=== PATIENT | male | born 1950 | race Caucasian/White ===

== ENCOUNTER 2018-03-23 16:40 | Observation (INO) | payer OTHER ==
--- NOTE | 2018-03-23 17:39 | EDPHY ---
H & P Stated Complaint: weakness post radiation for advanced prostate cancer/admit Time Seen by Provider: 03/23/18 17:11 HPI/ROS: CHIEF COMPLAINT: Severe anemia, generalized weakness HISTORY OF PRESENT ILLNESS: 67-year-old male with metastatic prostate cancer presents with severe anemia and generalized weakness. Over the past 3 days, onset of gradually increasing weakness and is now having difficulty ambulating. He just completed radiation therapy today at [facility] today. Hgb 7.9 today ( pt has lab test results from [facility] Dr. Lemos was consulted and the pt was sent to the emergency department for admission and blood transfusion. h/o multiple PRBC transfusions in the past; needs pretreatment with Tylenol, Benadryl and Solu-Medrol to avoid transfusion rxn. He also complains ongoing numbness of the lower face and dentition, which is quite aggravating and problematic. No etiology identified. REVIEW OF SYSTEMS: complete 10 point ROS negative except at noted in the HPI - Personal History Current Tetanus Diphtheria and Acellular Pertussis (TDAP): Yes - Medical/Surgical History Hx Asthma: No Hx Chronic Respiratory Disease: No Hx Diabetes: No Hx Cardiac Disease: No Hx Renal Disease: No Hx Cirrhosis: No Hx Alcoholism: No Hx HIV/AIDS: No Hx Splenectomy or Spleen Trauma: No Other PMH: prostate cancer - Social History Smoking Status: Never smoked Constitutional: Initial Vital Signs Temperature (C) 36.9 C 03/23/18 16:45 Heart Rate 92 03/23/18 16:45 Respiratory Rate 18 03/23/18 16:45 Blood Pressure 95/58 L 03/23/18 16:45 O2 Sat (%) 95 03/23/18 16:45 O2 Delivery Mode Room Air Allergies/Adverse Reactions: No Known Allergies Allergy (Unverified 03/23/18 16:43) Home Medications: Medication Instructions Recorded Acetaminophen [Tylenol ES 500 mg 1,000 mg PO PRN PRN 03/23/18 (*)] Calcium Carbonate [Oyster Shell 500 mg PO DAILY 03/23/18 Calcium 500 mg (*)] Dexamethasone [Decadron 4 MG (*)] 2 mg PO DAILY 03/23/18 Diazepam [Valium 10 MG (*)] 10 mg PO DAILY PRN 03/23/18 Herbals/Supplements -Info Only 1 ea PO DAILY 03/23/18 LORazepam [Lorazepam] 0.5 mg PO DAILY PRN 03/23/18 Leuprolide Acetate [Lupron Depot 22.5 mg IM .[id number] 03/23/18 (Lupaneta)] Naproxen Sodium [Aleve 220 MG (*)] 220 mg PO BID 03/23/18 Zolpidem Tartrate [Ambien 5MG (*)] 10 mg PO HS 03/23/18 diphenhydrAMINE [Benadryl 25 MG 25 mg PO PRN PRN 03/23/18 (*)] oxyCODONE IR [Oxycodone Ir (*)] 5 - 10 mg PO Q6 PRN 03/23/18 predniSONE 5 mg PO DAILY 03/23/18 Gabapentin [Neurontin 300 MG (*)] 600 mg PO HS #60 cap 03/25/18 Medical Decision Making ED Course/Re-evaluation: This patient presents with severe anemia, related to treatment of metastatic prostate cancer. No evidence of active hemorrhage or acute illness. 1 U packed red blood cells ordered. The hospitalist service was consulted for admission. Differential Diagnosis: Includes though is not limited to acute hemorrhage, aplastic anemia, hemolysis, hypertension. - Data Points Laboratory Results: Laboratory Results 03/23/18 17:28 03/23/18 17:28 03/23/18 17:28 Patient ABO/Rh B POSITIVE Antibody Screen NEGATIVE Crossmatch IS Only See Detail Bld Prod Verbal Order YES Medications Given: Discontinued Medications Acetaminophen (Tylenol) 1,000 mg PO ONCE ONE Stop: 03/23/18 20:47 Last Admin: 03/24/18 00:42 Dose: Not Given Acetaminophen (Tylenol) 1,000 mg PO ONCE ONE Stop: 03/24/18 00:46 Last Admin: 03/24/18 00:37 Dose: 1,000 mg Acetaminophen (Tylenol) 650 mg PO ONCE ONE Stop: 03/24/18 20:31 Last Admin: 03/24/18 21:36 Dose: 650 mg Calcium Carbonate (Oyster Shell Calcium) 500 mg PO DAILY COLIN Stop: 09/20/18 08:59 Last Admin: 03/25/18 09:36 Dose: 500 mg Dexamethasone (Decadron) 2 mg PO DAILY COLIN Stop: 03/28/18 09:01 Last Admin: 03/25/18 09:37 Dose: 2 mg Diphenhydramine HCl (Benadryl Injection) 50 mg IVP ONCE ONE Stop: 03/23/18 20:47 Last Admin: 03/24/18 00:42 Dose: Not Given Diphenhydramine HCl (Benadryl Injection) 50 mg IVP ONCE ONE Stop: 03/24/18 00:46 Last Admin: 03/24/18 00:38 Dose: 50 mg Diphenhydramine HCl (Benadryl Injection) 25 mg IVP ONCE ONE Stop: 03/24/18 20:31 Last Admin: 03/24/18 21:36 Dose: 25 mg Enoxaparin Sodium (Lovenox) 40 mg SC DAILY COLIN Stop: 09/20/18 08:59 Last Admin: 03/25/18 09:37 Dose: Not Given Gabapentin (Neurontin) 600 mg PO HS COLIN Stop: 09/19/18 20:59 Last Admin: 03/23/18 22:26 Dose: 600 mg Gabapentin (Neurontin) 600 mg PO BID COLIN Stop: 09/20/18 11:01 Last Admin: 03/25/18 09:36 Dose: 600 mg Dextrose/Sodium Chloride (D5w 1/2 Ns) 1,000 mls @ 75 mls/hr IV CONT COLIN Stop: 09/20/18 16:14 Last Admin: 03/24/18 16:45 Dose: 1,000 mls Lorazepam (Ativan) 0.5 mg PO DAILY PRN PRN Reason: pain/anxiety Stop: 09/19/18 20:46 Last Admin: 03/24/18 23:56 Dose: 0.5 mg Melatonin (Melatonin) 3 - 6 mg PO HS PRN PRN Reason: Sleep/Insomnia Stop: 09/20/18 23:34 Last Admin: 03/24/18 23:56 Dose: 6 mg Naproxen (Aleve) 220 mg PO BID COLIN Stop: 09/19/18 20:59 Last Admin: 03/25/18 09:36 Dose: 220 mg Prednisone (Prednisone) 5 mg PO DAILY COLIN Stop: 09/20/18 08:59 Last Admin: 03/24/18 11:58 Dose: Not Given Departure - Departure Disposition: [facility] In[facility] Acute Clinical Impression: Severe anemia, Prostate cancer Condition: Fair
[2018-03-23 17:40] LABS: PLATELET COUNT 99 10^3/uL (150-400)
[2018-03-23] MEDS ORDERED: ONDANSETRON 4 MG/2 ML VIAL IVP PRN (17:51)
[2018-03-23] MEDS ORDERED: ONDANSETRON DISINTEGRATING 4 MG TAB PO PRN (17:51)
[2018-03-23] MEDS ORDERED: ACETAMINOPHEN 325 MG TAB PO PRN (17:51)
[2018-03-23] MEDS ORDERED: ACETAMINOPHEN 500 MG TAB PO ONE (20:46)
[2018-03-23] MEDS ORDERED: LORazepam 0.5 MG TAB PO PRN (20:47)
[2018-03-23] MEDS ORDERED: oxyCODONE IR 5 MG TAB PO PRN (20:47)
[2018-03-23] MEDS ORDERED: DIAZEPAM 5 MG TAB PO PRN (20:47)
[2018-03-23] MEDS ORDERED: GABAPENTIN 300 MG CAP PO SCH (21:00)
[2018-03-23] MEDS: NAPROXEN SODIUM 220 MG TAB PO SCH (22:25)
--- NOTE | 2018-03-23 23:14 | PDGENHP ---
History and Physical - Chief Complaint Acute weakness - History of Present Illness Primary care provider: None locally Primary oncologist: Dr. Romulo Lemos Primary oncology team at [facility]: Drs. Navarro/Wesley HPI: 67-year-old male presenting with acute weakness characterized as generalized fatigue rendering difficulty ambulating with associated bilateral facial paresthesia located along the mandibular aspect bilaterally as well as the teeth, characterized as numbness. Onset of his weakness was approximately 3 days ago and duration has been consistently worsening thereafter. The patient was seen at [facility], and it was recommended that he establish care here in [place] with Dr. Romulo Lemos. The patient denies any melena or hematochezia, he reports that he has had to receive blood transfusions in the past for generalized weakness as well. He reports that the weakness is usually alleviated with the transfusions. He does have a history of transfusion reaction, and it is consequently been recommended to him that he receive washed and leukocyte reduced blood products with premedication including Tylenol and Benadryl. Patient's reports that on other occasions he has received additional medications including Solu-Medrol and H2 merari, but the patient did experience some untoward feelings of anxiety during those transfusions and he would like to avoid the steroids this time if possible. Additionally, the patient reports that his facial symptoms have become increasingly uncomfortable, resulting in him being unable to sleep despite utilization of his home dosages of opiates. History Information - Allergies/Home Medication List Allergies/Adverse Reactions: No Known Allergies Allergy (Unverified 03/23/18 16:43) Home Medications: Acetaminophen [Tylenol ES 500 mg (*)] 1,000 mg PO PRN PRN 03/23/18 [Last Taken Unknown] Calcium Carbonate [Oyster Shell Calcium 500 mg (*)] 500 mg PO DAILY 03/23/18 [ Last Taken Unknown] Dexamethasone [Decadron 4 MG (*)] 2 mg PO DAILY 03/23/18 [Last Taken 03/23/18 4 mg] Diazepam [Valium 10 MG (*)] 10 mg PO DAILY PRN 03/23/18 [Last Taken 03/22/18] Herbals/Supplements -Info Only 1 ea PO DAILY 03/23/18 [Last Taken Unknown] LORazepam [Lorazepam] 0.5 mg PO DAILY PRN 03/23/18 [Last Taken Unknown] Leuprolide Acetate [Lupron Depot (Lupaneta)] 22.5 mg IM [id number] 03/23/18 [ Last Taken 03/09/18] Naproxen Sodium [Aleve 220 MG (*)] 220 mg PO BID 03/23/18 [Last Taken 03/23/18 08:00] Zolpidem Tartrate [Ambien 5MG (*)] 10 mg PO HS 03/23/18 [Last Taken 03/22/18] diphenhydrAMINE [Benadryl 25 MG (*)] 25 mg PO PRN PRN 03/23/18 [Last Taken Unknown] oxyCODONE IR [Oxycodone Ir (*)] 5 - 10 mg PO Q6 PRN 03/23/18 [Last Taken Unknown ] predniSONE 5 mg PO DAILY 03/23/18 [Last Taken 03/13/18] I have personally reviewed and updated: family history, medical history, social history, surgical history - Past Medical History Additional medical history: Metastatic prostate cancer, status post radiation therapy recently directed to the left orbit. Facial neuropathy. Chronic pancytopenia secondary to treatment of malignancy - Surgical History Additional surgical history: Prostate surgery in 2010 - Family History Additional family history: No recent sick family contacts - Social History Smoking Status: Never smoked Alcohol Use: None Drug Use: Marijuana (Occasionally) Additional social history: Independent in his ADLs Review of Systems Review of Systems: ROS: 10pt was reviewed & negative except for what was stated in HPI & below Constitutional: Reports: weakness Gastrointestinal: Reports: constipation Neurological: Reports: numbness (Bilateral mandible) Physical Exam Physical Exam: Temp Pulse Resp BP Pulse Ox 36.6 C 73 16 94/55 L 96 03/23/18 18:29 03/23/18 18:29 03/23/18 18:29 03/23/18 18:29 03/23/18 18:29 Constitutional: no apparent distress, not in pain, chronically ill appearing, uncomfortable Eyes: PERRL, anicteric sclera, EOMI, other (Left lid lag) Ears, Nose, Mouth, Throat: moist mucous membranes, hearing normal, ears appear normal, no oral mucosal ulcers Cardiovascular: regular rate and rhythym, systolic murmur (1/6 at all valve locations), No edema Respiratory: no respiratory distress, no rales or rhonchi, clear to auscultation Gastrointestinal: normoactive bowel sounds, soft, non-tender abdomen, no palpable masses Skin: No abrasion, No rash (Over his face) Neurologic: AAOx3, sensation intact bilaterally, CN II-XII Intact (Left upper lateral quadrant lizbeth anopsia), No weakness Psychiatric: not encephalopathic, thought process linear, anxious, No agitated Lab Data & Imaging Review 03/23/18 17:28 03/23/18 17: WBC 4.70 10^3/uL (3.80-9.50) 03/23/18 17: RBC 2.66 10^6/uL (4.40-6.38) L 03/23/18: Hgb 7.2 g/dL (13.7-17.5) L 03/23/18: Hct 22.0 % (40.0-51.0) L 03/23/18: MCV 82.7 fL (81.5-99.8) 03/23/18: MCH 27.1 pg (27.9-34.1) L 03/23/18 17: MCHC 32.7 g/dL (32.4-36.7) 03/23/18: RDW 21.8 % (11.5-15.2) H 03/23/18: Plt Count 99 10^3/uL (150-400) L 03/23/18: MPV 9.4 fL (8.7-11.7) 03/23/18: Neut % (Auto) Not Reported 03/23/18: Lymph % (Auto) Not Reported 03/23/18 17:28 [place] % (Auto) Not Reported 03/23/18 17:28 Eos % (Auto) Not Reported 03/23/18:28 Baso % (Auto) Not Reported 03/23/18: Nucleat RBC Rel Count Not Reported 03/23/18: Absolute Neuts (auto) Not Reported 03/23/18 17:28 Absolute Lymphs (auto) Not Reported 03/23/18 17:28 Absolute Monos (auto) Not Reported 03/23/18: Absolute Eos (auto) Not Reported 03/23/18 17: Absolute Basos (auto) Not Reported 03/23/18 17:28 Absolute Nucleated RBC Not Reported 03/23/18 17:28 Immature Gran % Not Reported 03/23/18 17:28 Seg Neutrophils % 38 % 03/23/18 17:28 Band Neutrophils % 11 % 03/23/18 17:28 Lymphocytes % 43 % 03/23/18 17:28 Monocytes % 7 % 03/23/18 17:28 Metamyelocytes % 1 % 03/23/18 17:28 Immature Gran # Not Reported 03/23/18 17:28 Platelet Estimate DECREASED (ADEQ) L 03/23/18 17:28 Polychromasia 1+ H 03/23/18 17:28 Hypochromasia 2+ H 03/23/18 17:28 Microcytic Cells 1+ H 03/23/18 17:28 Tear Drop Cells 1+ H 03/23/18 17:28 Elliptocytes 1+ H 03/23/18 17:28 Sodium 133 mEq/L (135-145) L 03/23/18 17:28 Potassium 4.3 mEq/L (3.3-5.0) 03/23/18 17:28 Chloride 101 mEq/L (97-110) 03/23/18 17:28 Carbon Dioxide 19 mEq/l (22-31) L 03/23/18 17:28 Anion Gap 13 mEq/L (8-16) 03/23/18 17:28 BUN 31 mg/dL (7-23) H 03/23/18 17:28 Creatinine 0.9 mg/dL (0.7-1.3) 03/23/18 17:28 Estimated GFR > 60 03/23/18 17:28 Glucose 196 mg/dL (70-100) H 03/23/18 17:28 Calcium 8.3 mg/dL (8.5-10.4) L 03/23/18 17:28 Total Bilirubin 0.6 mg/dL (0.1-1.4) 03/23/18 17:28 Conjugated Bilirubin 0.5 mg/dL (0.0-0.5) 03/23/18 17:28 Unconjugated Bilirubin 0.1 mg/dL (0.0-1.1) 03/23/18 17:28 AST 121 IU/L (17-59) H 03/23/18 17:28 ALT 20 IU/L (21-72) L 03/23/18 17:28 Alkaline Phosphatase 249 IU/L (38-126) H 03/23/18 17:28 Total Protein 5.3 g/dL (6.3-8.2) L 03/23/18 17: Albumin 2.8 g/dL (3.5-5.0) L 03/23/18 17:28 Patient ABO/Rh B POSITIVE 03/23/18 17: Antibody Screen NEGATIVE 03/23/18: Crossmatch IS Only See Detail 03/23/18 17: Assessment & Plan Assessment: 67-year-old male presents with acute worsening of chronic generalized weakness secondary to acute on chronic anemia, metastatic prostate cancer Plan: 1. Anemia. Acute on chronic, secondary to pancytopenia secondary to underlying malignancy, no evidence of acute blood loss -discussed with Dr. Bianca Zepeda, she reports to me that she is discussed with Dr. Romulo Lemos and he has recommended washed and leukocyte reduced blood transfusion, with premedication including Tylenol and Benadryl -blood is almost ready, will provide 1 g of Tylenol, 50 mg of IV Benadryl, monitor closely for transfusion reaction, patient prefers to defer on Solu- Medrol at this time -repeat CBC in a.m. and transfuse a 2nd unit tomorrow if required 2. Metastatic prostate cancer. Reviewed outside records including 03/23/2018 care summary provided by [facility], reports the patient was scheduled to begin carboplatin chemotherapy in the near future, this is currently on hold per Dr. Lemos, while the patient receives radiation -appreciate oncology consultation a.m., Dr. Zepeda reports that Dr. Lemos has arranged -continue ongoing outpatient radiation therapy 3. Chronic pain with continuous opiate dependency. Continue home medications to avoid withdrawal, will cycle in gabapentin for neuropathy as outlined below -bowel regimen to avoid constipation 4. Facial neuropathy. Acute worsening of chronic condition, new problem this provider, further workup indicated. This symptom has become increasingly pervasive to the patient's sleep and overall well being, and he is not receiving optimal relief with opiates -discussed with patient and , patient would like high-dose of neuropathic agent to begin this evening, will start with gabapentin 600 mg at bedtime, as the patient is already taking very high doses of other sleep aids without effect -will get Neurology consultation in a.m. To help us determine whether the patient warrants further inpatient imaging or close outpatient follow-up and monitoring -order outside records from [facility] including the patient' s most recent imaging records which reportedly include MRI demonstrating no focal nerve impingement 5. Hyponatremia. Acute, most likely secondary to poor oncotic pressure and resultant hypovolemia in the setting of above, provide blood product and repeat serum sodium level in a.m. 6. Acute metabolic acidosis. Serum bicarbonate level low, likely secondary to organ hypoperfusion in setting of above, giving blood product and repeating level in a.m. 7. Hyperglycemia. Most likely secondary to chronic steroid use, check hemoglobin A1c Diet. Regular Prophylaxis. High risk, Lovenox 40 Code. Full per patient, is MD [facility] Disposition. Anticipated discharge is 03/24, pending stabilization of conditions outlined above.
[2018-03-24] MEDS ORDERED: ACETAMINOPHEN 500 MG TAB PO ONE (00:45)
[2018-03-24] MEDS ORDERED: Herbals/Supplements -Info Only PO SCH (09:00)
[2018-03-24] MEDS: NAPROXEN SODIUM 220 MG TAB PO SCH ×2 (09:25→21:46)
[2018-03-24] MEDS: predniSONE 5 MG TAB PO SCH ×2 (09:25→11:58)
[2018-03-24] MEDS: CALCIUM CARBONATE 500 MG TAB PO SCH (09:25)
[2018-03-24] MEDS: ENOXAPARIN 40 MG/0.4 ML SYR SC SCH (09:26)
--- NOTE | 2018-03-24 09:51 | NEUROPROG ---
Assessment: [id number] - Neurology Consult: - CC: Dr. Pedro Maharaj consulted neurology for paresthesias. Results placed in the EMR for his review. - HPI: Pt with metastatic prostate cancer presented to [facility] on 03/23/18 for acute weakness described as generalized fatigue with associated b/l facial paresthesias. Weakness began on 03/20/18 and was felt to be associated with his underlying anemia. Oncology/hematology has been consulted and recommended transfusion. Pt is on chronic opiates for pain as well. Neurology was consulted to evaluate his facial paresthesias. I initially saw the patient on . He reported in the last few months his metastatic cancer has spread to his left retro-orbital region. He noted in the last few weeks he has paresthesias in his bilateral lower jaw. He reported he had a brain MRI w/ and /wo con last week at the [facility] and no cause for the lower facial paresthesias was found besides his known metastatic cancer. He declined a repeat brain MRI at this time time. I agreed with the gabapentin began for symptomatic control. I will ask my office to try to obtain his brain MRI w/ and w/o con from [facility] but if no alternative cause was noted for his facial symptoms then I have nothing additional to recommend at this time other than treat underlying cancer by oncology and symptomatic support with gabapentin as is being done. - PMHx: metastatic prostate cancer status post radiation therapy, facial neuropathy, chronic pancytopenia 2nd to treatment of malignancy - SHx: no tobacco FHx: no sick family members currently - ROS: Pt denied acute fever, total vision loss, active severe chest pain, respiratory failure, total body severe rash, total bowel/bladder incontinence, psychosis, active seizures, or active bleeding - O: VS reviewed General: Alert, left retro orbital bulging from cancer per patient Eyes: Fundoscopic exam not able to visualize optic disks CV: Heart RRR, no murmur, no carotid bruit Lungs: Clear to auscultation bilaterally, no rhonchi or rales Neuro: - Mental: . Oriented x person/place/date . concentration appears normal . speech fluency/comprehension normal . memory appears normal . fund of knowledge appear intact - Cranial Nerves: . II: PERRL, VFFTC . III/IV/: EOMI, no nystagmus, normal smooth pursuits, no Ptosis . V: facial sensation intact to LT . VII: face symmetric to eye closure and smile . VIII: hearing intact to conversation . IX/X: uvula raises symmetrically . XI: SCM 5/5 B/L strength . XII: tongue protrudes midline w/nl strength - Motor: . Tone: normal tone in all 4 extremity . Strength: no pronator drift, strength 5/5 throughout (B/L delt, bic, tri, hand garden worker, hf/he, df/pf) - Reflexes: B/L bic/BR/patella 2/4 - Sensory: all 4 extremity intact to light touch - Coord: [id number] wnl, GENNARO wnl, [id number] wnl - Gait: deferred - Labs: 03/23/18- CBC Hct 22L Plt 99L, CMP Na 133L CO2 19L BUN 31H Gluc 196H Ca 8.3L AST 121 ALT 20L Alk Phos 249H Tot Prot 5.3L Alb 2.8L - Assessment: 1. Bilateral Facial Paresthesias in setting of Metastatic Pancreatic cancer: He reported in the last few months prior to 03/24/18 his metastatic cancer has spread to his left retro-orbital region. He noted in the last few weeks prior to 03/24/18 he has paresthesias in his bilateral lower jaw. He reported he had a brain MRI w/ and /wo con in March 2018 at the [facility] and no cause for the lower facial paresthesias was found besides his known metastatic cancer. He declined a repeat brain MRI on 03/24/18. I agreed with the gabapentin began for symptomatic control. I will ask my office to try to obtain his brain MRI w/ and w/o con from [facility] but if no alternative cause was noted for his facial symptoms then I have nothing additional to recommend at this time other than treat underlying cancer by oncology and symptomatic support with gabapentin as is being done. - 2. Weakness secondary to anemia - Plan: - Agree with oncology management plan - Patient declined brain MRI w/ and w/o con on 03/24/18 to evaluate his bilateral facial paresthesias as he reported he had this study in early March 2018 and no alternative cause was found besides his known metastatic cancer - Agree with gabapentin for symptom control - I will ask my office to try to obtain his brain MRI performed at March 2018 at [facility] - No further neurologic w/u needed at this time, neurology will sign off Objective: Vital Signs Temp Pulse Resp BP Pulse Ox 36.7 C 58 L 16 100/59 L 95 03/24/18 08:00 03/24/18 08:00 03/24/18 08:00 03/24/18 08:00 03/24/18 08:00 Laboratory Results 03/24/18 07:33 03/24/18 07:33 03/23/18 03/24/18 03/25/18 05:59 05:59 05:59 Intake Total 800 Output Total 250 Balance 550 Allergies/Adverse Reactions: No Known Allergies Allergy (Unverified 03/23/18 16:43)
--- NOTE | 2018-03-24 10:32 | NEUROPROG ---
Assessment: ADDENDUM: I was able to obtain the brain MRI w/ and w/o con from 03/16/18 which showed metastasis of the cancer to his left hemimandible and progression of mets wide spread throughout calvarium/skull and all along dura as well as additional mets locations in the full report. Therefore it appears metastatic cancer explains his facial paresthesias. No further neurologic w/u needed. Agree with plan for oncology management and symptomatic management with gabapentin. Objective: Vital Signs Temp Pulse Resp BP Pulse Ox 36.7 C 58 L 16 100/59 L 95 03/24/18 08:00 03/24/18 08:00 03/24/18 08:00 03/24/18 08:00 03/24/18 08:00 Laboratory Results 03/24/18 07:33 03/24/18 07:33 03/23/18 03/24/18 03/25/18 05:59 05:59 05:59 Intake Total 800 Output Total 250 Balance 550 Allergies/Adverse Reactions: No Known Allergies Allergy (Unverified 03/23/18 16:43)
--- NOTE | 2018-03-24 11:08 | HOSPPROG ---
Hospitalist Progress Note Assessment/Plan: Anemia - with h/o pancytopenia from cancer treatment, s/p 1 u prbc's. Hgb 7.2 - -> 7.5. -recheck hgb this afternoon, repeat transfusion if <7.5, pt notes feeling better with hgb >8 -note h/o transfusion reaction, pre-treat with tylenol and benadryl and give washed/leukoreduced prbc's if requires further tranfusions Metastatic prostate cancer - pt transitioning care from [facility] to [facility] with Dr. Lemos -oncology consult today -carboplatin therapy planned in near future -continue ongoing outpatient radiation therapy Chronic pain with continuous opiate dependency - cont home meds Facial neuropathy - recent MRI at [facility] showed retro-orbital metastases is likely culprit. -obtain MRI from [facility] -appreciate neurology recs -will increase gabapentin to 600 BID as pt tolerated initial dose well Elevated LFT's - unclear if there is metastatic dz in the liver, LFT's trending down today -cont to trend -defer further imaging to oncology, unclear if he had recent abdominal imaging at [facility] Diet - Regular Prophylaxis - Lovenox 40 Full code Disposition. Change to inpt due to ongoing weakness and need for acute PT/OT, possible further blood transfusion and pain control Subjective: Pt feels much better after 1 u prbc's. Still weak and unsteady on his feet and he doesn't feel safe discharging today. Tolerated gabapentin. No side effects. Up in chair eating this am. No CP, SOB, abdominal pain, N/V. No fevers. Tolerated blood transfusion Objective: Vital Signs Temp Pulse Resp BP Pulse Ox 36.7 C 58 L 16 100/59 L 95 03/24/18 08:00 03/24/18 08:00 03/24/18 08:00 03/24/18 08:00 03/24/18 08:00 Laboratory Results 03/24/18 07:33 03/24/18 07:33 03/23/18 03/24/18 03/25/18 05:59 05:59 05:59 Intake Total 800 Output Total 250 Balance 550 ICD10 Worksheet Patient Problems: Problems Problem Status Onset Prostate cancer Acute Severe anemia Acute
[2018-03-24] MEDS: DEXAMETHASONE 4 MG TAB PO SCH (11:57)
--- NOTE | 2018-03-24 14:02 | ASMTCASEMG ---
Living Arrangements What is your living Answers: With Spouse arrangement? Who do you live with? Type Of Residence What kind of residence do Answers: House you live in? Discharge Plan Comments Coordination Status Comments Notes: Pt is a 67 y/o man admitted for acute weakness. PT is recommending HC. OT has cleared pt to d/c home without any needs. CM met w/ pt and for dispo planning. Pt would like to have PT at home. CM provided pt w/ a list of HC agencies. Pt does not have a preference on HC agencies. CM made a referral to [facility]. CM notified Daiana at [facility] of the referral. CM to follow. Plan: [facility]; PT Date Signed: 03/24/2018 02:02 PM Electronically Signed By:TONO Grajeda
[2018-03-24] MEDS ORDERED: ACETAMINOPHEN 325 MG TAB PO ONE ×2 (15:57→20:30)
[2018-03-24] MEDS ORDERED: D5W 1/2 NS 1,000 ML IV SCH (16:15)
--- NOTE | 2018-03-24 16:50 | GCON ---
[f rep st] CONSULTATION MEDICAL ONCOLOGY CONSULTATION. LOCATION: [address] [place] [address]. REASON FOR CONSULT: This gentleman has a longstanding history of metastatic prostate carcinoma and i s transferring his care from [facility] to [facility] and has been hospitalized as of yesterday for complications of his disease and transfusion requi rements. The patient is a 67-year-old gentleman, who reports he was first diagnosed with prostate cancer in 20 04. His treatment has been at the [facility], and his staging operative re ports and pathology reports, as well as treatment records are not available to me at this time, and t herefore, this information is acknowledged to be incomplete. Nonetheless, the patient reports he had been on hormone therapy for a number of years and reports he had radiation therapy to the prostate bed due to a rise in his PSA in approximately 2007. He also re ceived radiation therapy to the right femur for metastatic disease sometime thereafter. 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 He more recently has had evidence of facial and intracranial disease recurrence and has ju st completed 9 days of radiation therapy to the left orbital region for periorbital metastatic diseas e and with a recent history of disease in the base of skull with evidence of disease in the dura. He also has had problems with transfusion reactions requiring washed red cells as of yesterday. It was just recommended to transfer his care to [facility] and has not yet been s een as an outpatient. His prostate cancer records, as noted above, are not available in this dictati on. The patient describes facial numbness over the distribution of the right and left side of trigeminal nerves that is unabated after completion of his radiation to the left orbit. He denies nausea, vomit ing, seizure activity, or headaches. He denies any focal weakness. This is his first hospitalization in several months. FAMILY HISTORY: No history of malignancy in the family. PRIOR SURGICAL HISTORY: Prostate resection, 2006. HOME MEDICATIONS: Acetaminophen, calcium carbonate, dexamethasone, diazepam, lorazepam, history of L upron usage last dose 03/23/2018, naproxen, Ambien, Benadryl, oxycodone IR 5-10 mg, prednisone 5 mg d aily. REVIEW OF SYSTEMS: As above. SOCIAL HISTORY: The patient lives with his , Jennifer. There is no history of occupational exposur es. No current use of alcohol or tobacco. PERTINENT REVIEW OF SYSTEMS: Notable as above. EXAM: GENERAL: This is a pleasant, alert, communicative, middle-age white male in no acute distress . He has obvious left periorbital bulging creating a sense of facial asymmetry. No other obvious cr anial nerve palsies. HEENT: Sclerae anicteric. Oral mucosa intact. The tongue shows normal bilate ral bulk, tone, and movement. No oral thrush. NECK: No adenopathy in the neck. LUNG WHEELER: Queta r. CARDIAC: Regular rhythm. ABDOMEN: Soft, without mass, tenderness, or HSM. EXTREMITIES: Unrem arkable. Reflexes normal. LABORATORIES: Show admission hemoglobin 7.2, hemoglobin today 8.7, platelet count 99, white count 4. 7. Sodium 133, potassium 4.8, BUN 29, creatinine 1.0, calcium 8.1, AST 104, ALT 22, alkaline phospha tase 221, LDH 2215, albumin 2.4. Report of MRI dated 03/16/2018, shows metastatic disease to the left hemimandible with widespread pro gression of metastatic disease throughout the calvarium, skull, and all along the dura indicative of widespread intracranial disease. IMPRESSION: 1. Stage IV prostate carcinoma, disease onset reported as 2005. Operative findings, baseline PSA at diagnosis, surgical report, and previous treatment records not available. By history, most recent t reatment included Taxotere as of early December 2017, now with evidence of intracranial disease and l eft periorbital disease, status post completion of radiation to left periorbital region. 2. Anemia related to ongoing disease and its treatment with possible bone marrow involvement. 3. Cranial nerve palsies, including bilateral trigeminal nerve involvement. COMMENTS: This patient would likely benefit from another unit of blood and IV hydration, which I hav e ordered. He is scheduled to see Dr. Lemos in our office next week in [place], and further systemic therapy will be considered. I am concerned about the possibility of carcinomatosis meningitis, and I think that a diagnostic spin al tap would help to determine if he, in fact, has prostate carcinoma within the spinal fluid, as I h ave discussed with the patient and his this afternoon. They would like to contemplate giving co nsent for a lumbar puncture, which I informed the patient could be deferred until Wednesday, march 24, or anytime in the future as an outpatient. If, in fact, the patient does have carcinomatosis meningitis , that would be a very concerning finding and certainly prognostically change his outlook, which woul d be important for his personal and treatment planning. Our service will follow. /[id number]/MODL
[2018-03-24] MEDS: GABAPENTIN 300 MG CAP PO SCH (21:47)
[2018-03-24] MEDS ORDERED: MELATONIN 3 MG TAB PO PRN (23:35)
[2018-03-25 08:52] VITALS: BP 118/57
[2018-03-25] MEDS: CALCIUM CARBONATE 500 MG TAB PO SCH (09:36)
[2018-03-25] MEDS: GABAPENTIN 300 MG CAP PO SCH (09:36)
[2018-03-25] MEDS: NAPROXEN SODIUM 220 MG TAB PO SCH (09:36)
[2018-03-25] MEDS: DEXAMETHASONE 4 MG TAB PO SCH (09:37)
[2018-03-25] MEDS: ENOXAPARIN 40 MG/0.4 ML SYR SC SCH (09:37)
--- NOTE | 2018-03-25 12:20 | PDIAF ---
- Diagnosis Diagnosis: prostate cancer, anemia Code Status: Full Code - Medication Management Discharge Medications: Medications to Continue on Transfer Acetaminophen [Tylenol ES 500 mg (*)] 1,000 mg PO PRN PRN 03/23/18 [Last Taken Unknown] Calcium Carbonate [Oyster Shell Calcium 500 mg (*)] 500 mg PO DAILY 03/23/18 [ Last Taken Unknown] Dexamethasone [Decadron 4 MG (*)] 2 mg PO DAILY 03/23/18 [Last Taken 03/23/18 4 mg] Diazepam [Valium 10 MG (*)] 10 mg PO DAILY PRN 03/23/18 [Last Taken 03/22/18] Herbals/Supplements -Info Only 1 ea PO DAILY 03/23/18 [Last Taken Unknown] LORazepam [Lorazepam] 0.5 mg PO DAILY PRN 03/23/18 [Last Taken Unknown] Leuprolide Acetate [Lupron Depot (Lupaneta)] 22.5 mg IM .[id number] 03/23/18 [ Last Taken 03/09/18] Naproxen Sodium [Aleve 220 MG (*)] 220 mg PO BID 03/23/18 [Last Taken 03/23/18 08:00] Zolpidem Tartrate [Ambien 5MG (*)] 10 mg PO HS 03/23/18 [Last Taken 03/22/18] diphenhydrAMINE [Benadryl 25 MG (*)] 25 mg PO PRN PRN 03/23/18 [Last Taken Unknown] oxyCODONE IR [Oxycodone Ir (*)] 5 - 10 mg PO Q6 PRN 03/23/18 [Last Taken Unknown ] predniSONE 5 mg PO DAILY 03/23/18 [Last Taken 03/13/18] Gabapentin [Neurontin 300 MG (*)] 600 mg PO HS #60 cap 03/25/18 [Last Taken Unknown] Discharge Medications: Refer to the Discharge Home Medication list for PRN reason. PICC Care - Routine: N/A - Orders Services needed: Home Care, Physical Therapy Home Care Face to Face: I certify that this patient was under my care and that I had the required [id number] encounter meeting the encounter requirements on the discharge day. My findings support the fact that the patient is homebound as defined in Home Care Face to Face Continued: CMS Chapter 7 Medicare Benefits Manual 30.1.1 , The condition of the patient is such that there exists a normal inability to leave home and consequently, leaving home would require a considerable and taxing effort. Diet Recommendation: no restrictions on diet Additional Instructions: Follow up with Dr. Lemos next week as planned. Contact MD for any worsening symptoms or for any other medical concerns. - Follow Up Care Current Providers and Referrals: Romulo Lemos MD [Medical Doctor] - Jaret Quick MD [Primary Care Provider] - As per Instructions
--- NOTE | 2018-03-26 04:41 | GDS ---
[f rep st] DISCHARGE SUMMARY DISCHARGE DIAGNOSES: 1. Symptomatic anemia. 2. Pancytopenia secondary to chemotherapy. 3. Metastatic prostate cancer. 4. Chronic pain with chronic continuous opioid dependence. 5. 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 6. Elevated liver function tests. CONSULTANTS: 1. Dr. Jose Holbrook, Neurology. 2. Dr. Jose Uriarte, Oncology. HISTORY OF DETAILS: Please see the history and physical dated March 23, 2018. In brief, the patient i s a 67-year-old male with a history of metastatic prostate cancer, who presents to the emergency depa rtment with acute weakness. His cancer was previously managed at the [facility], though they are transferring their care to the [facility]. He developed weakness w ith worsening anemia and was sent to the hospital for admission and blood transfusion. HOSPITAL COURSE: Patient was admitted to oncology unit. He received 2 units of blood. His hemoglob in improved from 7.2 to 8.7. In addition, his weakness dramatically improved. Oncology consult was obtained and consideration was given to a lumbar puncture to rule out meningeal carcinomatosis. The patient actually declined this intervention and it is noted this can also be done in the outpatient s etting. He will have ongoing discussions with his new primary oncologist, Dr. Lemos, regarding th e pursuing LP. He is noted to have a facial neuropathy secondary to metastatic lesion affecting his 12th cranial nerve. He was started on gabapentin with some improvement in his pain. However, his sy mptoms are more related to numbness and he understands the gabapentin may not resolve this symptom. He tolerated the gabapentin well and was discharged with a prescription for this. He had therapy tai luations and was deemed safe for discharge home, though home PT was recommended, and the patient is a ccepting of this. DISPOSITION: Patient is discharged home in stable condition with home health PT services. FOLLOWUP: 1. Dr. Romulo Lemos, [facility]. 2. Dr. Jaret Quick, primary care. DISCHARGE MEDICATIONS: Please see [facility] for completed outpatient medication list. New medication s on discharge include: Gabapentin 600 mg p.o. at bedtime #60, no refills. He will continue all oth er outpatient medications as previously prescribed. /[id number]/MODL
== END 2018-03-25 12:22 | disposition home or self-care (01) ==
LOC: F1N 18:25
PROVIDERS: ADMIT Internal Medicine; ATTEND Internal Medicine
PROC: 30233N1 Transfusion of Nonautologous Red Blood Cells into Peripheral Vein, Percutaneous Approach (ICD-10-PCS; principal; 2018-03-23)
DX: D61.810 Antineoplastic chemotherapy induced pancytopenia (principal); C61 Malignant neoplasm of prostate; G89.29 Other chronic pain; F11.20 Opioid dependence, uncomplicated; G51.9 Disorder of facial nerve, unspecified; R94.5 Abnormal results of liver function studies
CPT/HCPCS: 36430; 97161; 97166; G0378; G8978; G8979; G8987; G8988; G8989; J1200; J7512; P9016; J1650

== ENCOUNTER → 2018-04-07 | Outpatient (CLI) | payer OTHER ==
[~2018-04-07] MED LIST: ACETAMINOPHEN 325 MG TAB PO ONE; diphenhydrAMINE 25 MG CAP PO ONE
== END ==
LOC: FOBOP 11:04
PROVIDERS: ATTEND Internal Medicine Hematology & Oncology
PROC: 30233N1 Transfusion of Nonautologous Red Blood Cells into Peripheral Vein, Percutaneous Approach (ICD-10-PCS; principal; 2018-04-07)
DX: C61 Malignant neoplasm of prostate (principal); D64.81 Anemia due to antineoplastic chemotherapy
CPT/HCPCS: 36430; P9016

== ENCOUNTER → 2018-04-22 | Outpatient (CLI) | payer OTHER | LOC: FOBOP 11:16 | PROVIDERS: ATTEND Internal Medicine Hematology & Oncology | PROC: 30233N1 Transfusion of Nonautologous Red Blood Cells into Peripheral Vein, Percutaneous Approach (ICD-10-PCS; principal; 2018-04-22) | DX: C61 Malignant neoplasm of prostate (principal) | CPT/HCPCS: 36430; P9016 ==

== ENCOUNTER → 2018-04-28 | Outpatient (CLI) | payer OTHER ==
[~2018-04-28] MED LIST changes: -ACETAMINOPHEN 325 MG TAB PO ONE; +IOPAMIDOL (ISOVUE 370) 100 ML BTL IV ONE; -diphenhydrAMINE 25 MG CAP PO ONE
== END ==
LOC: FIMAGING 13:36
PROVIDERS: ATTEND Internal Medicine Hematology & Oncology
DX: R06.02 Shortness of breath (principal); C79.51 Secondary malignant neoplasm of bone; C61 Malignant neoplasm of prostate; R59.0 Localized enlarged lymph nodes; M79.9 Soft tissue disorder, unspecified
CPT/HCPCS: 71275; Q9967

== ENCOUNTER 2018-05-03 12:03 | Outpatient (CLI) | payer OTHER | END 2018-05-03 18:10 | disposition home or self-care (01) | LOC: FOBOP 12:03 | PROVIDERS: ATTEND Internal Medicine Hematology & Oncology | PROC: 30233N1 Transfusion of Nonautologous Red Blood Cells into Peripheral Vein, Percutaneous Approach (ICD-10-PCS; principal; 2018-05-03) | DX: C61 Malignant neoplasm of prostate (principal) | CPT/HCPCS: 36430; P9016 ==

== ENCOUNTER → 2018-05-06 | Outpatient (CLI) | payer OTHER | LOC: FIMAGING 10:30 | PROVIDERS: ATTEND Internal Medicine Hematology & Oncology | DX: C61 Malignant neoplasm of prostate (principal); C78.6 Secondary malignant neoplasm of retroperitoneum and peritoneum; C79.51 Secondary malignant neoplasm of bone | CPT/HCPCS: 78306; A9503 ==

== ENCOUNTER 2018-05-12 10:50 | Outpatient (CLI) | payer OTHER | END 2018-05-12 15:35 | disposition home or self-care (01) | LOC: FOBOP 10:50 | PROVIDERS: ATTEND Internal Medicine Hematology & Oncology | PROC: 30233N1 Transfusion of Nonautologous Red Blood Cells into Peripheral Vein, Percutaneous Approach (ICD-10-PCS; principal; 2018-05-12) | DX: C61 Malignant neoplasm of prostate (principal) | CPT/HCPCS: 36430; P9016 ==

== ENCOUNTER 2018-05-26 11:12 | Outpatient (CLI) | payer OTHER | END 2018-05-26 16:30 | disposition home or self-care (01) | LOC: FOBOP 11:12 | PROVIDERS: ATTEND Internal Medicine Hematology & Oncology | PROC: 30233N1 Transfusion of Nonautologous Red Blood Cells into Peripheral Vein, Percutaneous Approach (ICD-10-PCS; principal; 2018-05-26) | DX: C61 Malignant neoplasm of prostate (principal); D64.81 Anemia due to antineoplastic chemotherapy | CPT/HCPCS: 36430; P9016; 99001-90 ==

== ENCOUNTER → 2018-06-15 | Outpatient (CLI) | payer OTHER | PROC: 30233N1 Transfusion of Nonautologous Red Blood Cells into Peripheral Vein, Percutaneous Approach (ICD-10-PCS; principal; 2018-06-15) | DX: C61 Malignant neoplasm of prostate (principal) | CPT/HCPCS: 36430; P9016 ==

== ENCOUNTER 2018-06-25 15:04 | Emergency (ER) | payer OTHER ==
--- NOTE | 2018-06-25 15:38 | EDPHY ---
H & P Stated Complaint: increasing SOB, d/c'ed on Wed Time Seen by Provider: 06/25/18 15:38 - Medical/Surgical History Hx Asthma: No Hx Chronic Respiratory Disease: No Hx Diabetes: No Hx Cardiac Disease: No Hx Renal Disease: No Hx Cirrhosis: No Hx Alcoholism: No Hx HIV/AIDS: No Hx Splenectomy or Spleen Trauma: No Other PMH: prostate cancer; denies other health issues - Social History Smoking Status: Never smoked Constitutional: Initial Vital Signs Temperature (C) 36.4 C 06/25/18 15:08 Heart Rate 113 H 06/25/18 15:08 Respiratory Rate 18 06/25/18 15:08 Blood Pressure 70/52 L 06/25/18 15:08 O2 Sat (%) 96 06/25/18 15:08 O2 Delivery Mode Room Air Allergies/Adverse Reactions: No Known Allergies Allergy (Verified 06/25/18 15:07) Home Medications: Medication Instructions Recorded Leuprolide Acetate [Lupron Depot 22.5 mg IM .[id number] 03/23/18 (Lupaneta)] Naproxen Sodium [Aleve 220 MG (*)] 220 mg PO BID PRN 03/23/18 oxyCODONE IR [Oxycodone Ir (*)] 5 - 10 mg PO Q6H PRN 03/23/18 Acetaminophen [8Hr Arthritis Pain 1,300 mg PO QID 06/20/18 Relief] Calcium Carbonate [Oyster Shell 500 mg PO DAILY 06/20/18 Calcium 500 mg (*)] DULoxetine [Cymbalta 30 MG (*)] 30 mg PO DAILY 06/20/18 Fludrocortisone Acetate [Florinef] 0.1 mg PO DAILY 06/20/18 Hydrocortisone 0.5% 1 rolo TP DAILY PRN 06/20/18 [Hydrocortisone 0.5% cream (*)] traZODone [traZODONE 100MG (*)] 100 mg PO HS 06/20/18 Medical Decision Making - Diagnostics Imaging Results: Imaging Impressions Chest X-Ray 06/25/18 15:43 Impression: 1. Persistent dense left lower lobe consolidation possibly representing pneumonia vs residual compression atelectasis. 2. Free flowing right pleural effusion. Imaging: I viewed and interpreted images myself ED Course/Re-evaluation: CHIEF COMPLAINT: Shortness of breath, low blood pressure HISTORY OF PRESENT ILLNESS: The patient is a 68 y/o male with a history of metastatic prostate cancer complaining of shortness of breath, low blood pressure, and weakness. On Wednesday , 5 days ago, he was admitted to this hospital for hypotension and a pleural effusion. During this admission he was given 2 units of blood. Upon discharge on Wednesday, 3 days ago, he was advised to be aware of shortness of breath as the blood transfusion might exacerbate the pleural effusion. Today he developed shortness of breath, weakness, and hypotension again. Due to the shortness of breath he is having difficulty talking and walking around his home. Denies headache, chest pain, abdominal pain, urinary or bowel complaints, numbness, fevers. Per his , the patients metastatic prostate cancer has "metastasized everywhere". He is followed by Dr. Lemos, oncologist. REVIEW OF SYSTEMS: A 10 point review of systems was performed and is negative with the exception of the elements mentioned in the history of present illness. PHYSICAL EXAM: HR, BP, O2 Sat, RR. Temp noted General Appearance: Pale, cachectic, appears toxic, breathing between every word. Head: Atraumatic without scalp tenderness or obvious injury Eyes: Pupils equal, round, reactive to light and accommodation, EOMI, no trauma , no injection. Ears: Clear bilaterally, no perforation, normal landmarks Nose: Atraumatic, no rhinorrhea, clear. Throat: There is no erythema or exudates, no lesions, normal tonsils, mucus membranes moist. Neck: Supple, 2+ carotid upstroke, nontender, no lymphadenopathy. Respiratory: Unable to hear proper breath sounds as patient is not taking full breaths. Cardiovascular: Regular rate and rhythm, no murmurs, rubs, or gallops. Bilateral carotid, radial, dorsalis pedis, and posterior tibial pulses intact. Good capillary refill all extremities. Gastrointestinal: Abdomen is soft, nontender, non-distended, no masses, no rebound, no guarding, no peritoneal signs. Musculoskeletal: Normal active ROM of all extremities, atraumatic. Neurological: Alert. The patient has normal DTRs and non-focal cranial nerves , motor, sensory, and cerebellar exam. Skin: No rashes, good turgor, no nodules on palpation. Past medical history: Metastatic prostate cancer Past surgical history: Denies Family history: Denies Social history: at bedside, retired, lives in [place] DIAGNOSTICS/PROCEDURES/CRITICAL CARE TIME: Chest X-ray: Bilateral pleural effusion, not significantly worse than chest x- ray on 06/20/18. DIFFERENTIAL DIAGNOSIS: The differential diagnosis for the patient's shortness of breath and hypoxemia included but was not limited to pleural effusion, pneumonia, myocardial infarction, acute mountain sickness, high altitude pulmonary edema, congestive heart failure, and pulmonary embolus. MEDICAL DECISION MAKING: The patient is a 68 y/o male with a history of metastatic prostate cancer presenting with shortness of breath, low blood pressure, and weakness. He was admitted to this hospital 5 days ago for hypotension, anemia, and a pleural effusion. At triage his blood pressure was 70/52. On exam he is breathing between every word, is pale and cachectic, and appears toxic. I am unable to assess his breath sounds properly as he is not taking full breaths. His blood pressure is now 104/61 and his O2Sats are 94%. Labs and chest x-ray ordered; 1L IV NS administered. 1600: I reviewed patient's chest x-ray at bedside which reveals a bilateral pleural effusion, radiologist reading still pending. 1611: Patient's hematocrit is 23; it was 25 on 06/22/18, 3 days ago. Patient will be type and crossed for a blood transfusion. 1629: I consulted with Dr. Self, oncologist, regarding this patient. She agrees with my plan for admission and will consult on this patient during his admission. 1634: I consulted with the hospitalist service, Dr. Jacobo accepts admission of this patient. 1640: Reassessed patient and discussed laboratory and imaging findings. I have also discussed plan for admission. The patient and his have politely declined admission. The patient does not want further imaging studies including a PE study or a blood transfusion. His labs are not remarkably different from his prior admission. I had a lengthy discussion with the patient and regarding the risks associated with refusing admission and they are comfortable with these risks. His vital signs have improved and he is no longer hypotensive and is not hypoxic. I have advised the patient to follow up with his oncologist , Dr. Lemos, on Wednesday as well as a child attendant. Strict return precautions provided; patient is comfortable with this plan. - Data Points Laboratory Results: Laboratory Results 06/25/18 15:45 06/25/18 15:45 06/25/18 06/25/18 06/25/18 16:03 15:59 15:45 WBC RBC Hgb POC Hgb 7.8 gm/dL L gm/dL (13.7-17.5) Hct POC Hct 23 % L % (40-51) MCV MCH MCHC RDW Plt Count MPV Neut % (Auto) Lymph % (Auto) [place] % (Auto) Eos % (Auto) Baso % (Auto) Nucleat RBC Rel Count Absolute Neuts (auto) Absolute Lymphs (auto) Absolute Monos (auto) Absolute Eos (auto) Absolute Basos (auto) Absolute Nucleated RBC Immature Gran % Immature Gran # Platelet Estimate PT INR APTT VBG Lactic Acid POC Sodium 130 mEq/L L mEq/L (135-145) Sodium POC Potassium 4.0 mEq/L mEq/L (3.3-5.0) Potassium POC Chloride 99 mEq/L mEq/L (97-110) Chloride Carbon Dioxide Anion Gap POC BUN 23 mg/dL mg/dL (7-23) BUN Creatinine POC Creatinine 1.2 mg/dL mg/dL (0.7-1.3) Estimated GFR Glucose POC Glucose 87 mg/dL mg/dL (70-100) Calcium Magnesium Total Bilirubin Conjugated Bilirubin Unconjugated Bilirubin AST ALT Alkaline Phosphatase POC Troponin I 0.00 ng/mL ng/mL (0.00-0.08) NT-Pro-B Natriuret Pep Total Protein Albumin Lipase Cortisol PM Sample Pending Patient ABO/Rh Antibody Screen Crossmatch IS Only 06/25/18 06/25/18 06/25/18 15:45 15:45 15:45 WBC RBC Hgb POC Hgb Hct POC Hct MCV MCH MCHC RDW Plt Count MPV Neut % (Auto) Lymph % (Auto) [place] % (Auto) Eos % (Auto) Baso % (Auto) Nucleat RBC Rel Count Absolute Neuts (auto) Absolute Lymphs (auto) Absolute Monos (auto) Absolute Eos (auto) Absolute Basos (auto) Absolute Nucleated RBC Immature Gran % Immature Gran # Platelet Estimate PT 13.7 SEC SEC (12.0-15.0) INR 1.03 (0.83-1.16) APTT 32.2 SEC SEC (23.0-38.0) VBG Lactic Acid POC Sodium Sodium 131 mEq/L L mEq/L (135-145) POC Potassium Potassium 4.1 mEq/L mEq/L (3.3-5.0) POC Chloride Chloride 99 mEq/L mEq/L (97-110) Carbon Dioxide 22 mEq/l mEq/l (22-31) Anion Gap 10 mEq/L mEq/L (8-16) POC BUN BUN 23 mg/dL mg/dL (7-23) Creatinine 1.1 mg/dL mg/dL (0.7-1.3) POC Creatinine Estimated GFR > 60 Glucose 87 mg/dL mg/dL (70-100) POC Glucose Calcium 9.6 mg/dL mg/dL (8.5-10.4) Magnesium 1.8 mg/dL mg/dL (1.6-2.3) Total Bilirubin 1.4 mg/dL mg/dL (0.1-1.4) Conjugated Bilirubin 0.6 mg/dL H mg/dL (0.0-0.5) Unconjugated Bilirubin 0.8 mg/dL mg/dL (0.0-1.1) AST 109 IU/L H IU/L (17-59) ALT 34 IU/L IU/L (21-72) Alkaline Phosphatase 276 IU/L H IU/L (38-126) POC Troponin I NT-Pro-B Natriuret Pep 1260 pg/mL H pg/mL (0-125) Total Protein 5.8 g/dL L g/dL (6.3-8.2) Albumin 3.0 g/dL L g/dL (3.5-5.0) Lipase 111 IU/L IU/L (23-300) Cortisol PM Sample Patient ABO/Rh Pending Antibody Screen Pending Crossmatch IS Only See Detail 06/25/18 06/25/18 15:45 15:45 WBC 1.94 10^3/uL L 10^3/uL (3.80-9.50) RBC 3.00 10^6/uL L 10^6/uL (4.40-6.38) Hgb 8.8 g/dL L g/dL (13.7-17.5) POC Hgb Hct 25.4 % L % (40.0-51.0) POC Hct MCV 84.7 fL fL (81.5-99.8) MCH 29.3 pg pg (27.9-34.1) MCHC 34.6 g/dL g/dL (32.4-36.7) RDW 16.9 % H % (11.5-15.2) Plt Count Pending MPV Pending Neut % (Auto) Pending Lymph % (Auto) Pending [place] % (Auto) Pending Eos % (Auto) Pending Baso % (Auto) Pending Nucleat RBC Rel Count Pending Absolute Neuts (auto) Pending Absolute Lymphs (auto) Pending Absolute Monos (auto) Pending Absolute Eos (auto) Pending Absolute Basos (auto) Pending Absolute Nucleated RBC Pending Immature Gran % Pending Immature Gran # Pending Platelet Estimate Pending PT INR APTT VBG Lactic Acid 1.4 mmol/L mmol/L (0.7-2.1) POC Sodium Sodium POC Potassium Potassium POC Chloride Chloride Carbon Dioxide Anion Gap POC BUN BUN Creatinine POC Creatinine Estimated GFR Glucose POC Glucose Calcium Magnesium Total Bilirubin Conjugated Bilirubin Unconjugated Bilirubin AST ALT Alkaline Phosphatase POC Troponin I NT-Pro-B Natriuret Pep Total Protein Albumin Lipase Cortisol PM Sample Patient ABO/Rh Antibody Screen Crossmatch IS Only Medications Given: Discontinued Medications Sodium Chloride (Ns) 1,000 mls @ 0 mls/hr IV EDNOW ONE; Wide Open PRN Reason: Protocol Stop: 06/25/18 15:43 Last Admin: 06/25/18 15:45 Dose: 1,000 mls Point of Care Test Results: Chemistry 06/25/18 06/25/18 16:03 15:59 POC Sodium 130 mEq/L L mEq/L (135-145) POC Potassium 4.0 mEq/L mEq/L (3.3-5.0) POC Chloride 99 mEq/L mEq/L (97-110) POC BUN 23 mg/dL mg/dL (7-23) POC Creatinine 1.2 mg/dL mg/dL (0.7-1.3) POC Glucose 87 mg/dL mg/dL (70-100) POC Troponin I 0.00 ng/mL ng/mL (0.00-0.08) ISTAT H&H 06/25/18 16:03 POC Hgb 7.8 gm/dL L gm/dL (13.7-17.5) POC Hct 23 % L % (40-51) Departure - Departure Disposition: Home, Routine, Self-Care Clinical Impression: Difficulty breathing, Pleural effusion, Failure to thrive in adult, Prostate cancer Hypotension Qualifiers: Hypotension type: unspecified hypotension type Qualified Code(s): I95.9 - Hypotension, unspecified Anemia Qualifiers: Anemia type: other cause Other causes of anemia: other cause, not classified Qualified Code(s): D64.89 - Other specified anemias Condition: Fair Report Scribed for: Newton Pate Report Scribed by: Ailyn Ryan Date of Report: 06/25/18 Time of Report: 15:39
[2018-06-25] MEDS ORDERED: NS 1,000 ML IV ONE (15:42)
[2018-06-25 16:13] LABS: INR 1.03 (0.83-1.16); PROTIME(PATIENT) 13.7 SEC (12.0-15.0)
[2018-06-25 17:08] VITALS: BP 100/54
[2018-06-25 18:35] LABS: PLATELET COUNT 31 10^3/uL (150-400)
== END 2018-06-25 17:06 | disposition home or self-care (01) ==
LOC: UNDOADMOB 16:33
DX: R06.02 Shortness of breath (principal); I95.9 Hypotension, unspecified; E86.9 Volume depletion, unspecified; J90 Pleural effusion, not elsewhere classified; C61 Malignant neoplasm of prostate; D64.89 Other specified anemias; R62.7 Adult failure to thrive
CPT/HCPCS: 82435-PO; 82565-PO; 82947-PO; 84132-PO; 84295-PO; 84484-PO; 84520-PO; 85014-PO

== ENCOUNTER → 2018-06-29 | Outpatient (CLI) | payer OTHER ==
[~2018-06-29] MED LIST changes: -IOPAMIDOL (ISOVUE 370) 100 ML BTL IV ONE; +LIDOCAINE 1% 300 MG/30 ML SDV ONE
== END ==
LOC: FIMAGING 13:25
PROVIDERS: ATTEND Internal Medicine Hematology & Oncology
PROC: 0W9B3ZZ Drainage of Left Pleural Cavity, Percutaneous Approach (ICD-10-PCS; principal; 2018-06-29)
DX: J90 Pleural effusion, not elsewhere classified (principal); C61 Malignant neoplasm of prostate

== ENCOUNTER 2018-07-04 15:08 | Inpatient (IN) | payer OTHER ==
--- NOTE | 2018-07-04 15:25 | EDPHY ---
HPI/HX/ROS/PE/MDM Narrative: CHIEF COMPLAINT: Stroke alert. HISTORY OF PRESENT ILLNESS: This patient is a 68 year old male with stage IV metastatic prostate cancer arriving via EMS on a stroke alert. Patient lives at home with his family. They report he has been progressively more sleepy and tired over the last several days but he was in his usual state of health last night at 11:00 p.m.. He slept till around 11 o'clock this morning and when he woke he noticed that he was having difficulty with his right arm and right leg. Family also noticed some falling to the left as well as slurred speech. On paramedics arrival, they noticed the blood glucose of 57. EN route patient received D10 and on recheck his glucose was 137. Paramedics believe that the glucose improve the patient's weakness. On arrival to the emergency department the patient is alert, does not complain of a headache. He has significant weakness in the right leg, unable to bend or lifted off the stretcher. Right flavor maker strength is slightly diminished. Also has a left-sided facial droop. History from the family is that the patient recently had a urinary tract infection, was on 3 days of antibiotics. They did notice some hematuria yesterday. Patient's dysuria has improved on the antibiotics. He has otherwise had no fevers or chills. No chest pain, shortness of breath, or history of falls. 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 REVIEW OF SYSTEMS: Aside from elements discussed in the HPI, a comprehensive 10-point review of systems was reviewed and is negative. PAST MEDICAL HISTORY: Metastatic prostate cancer. SOCIAL HISTORY: Presents with his family members. Lives in [place]. Retired. VITAL SIGNS: Reviewed by me GENERAL: Somewhat bowen, ill-appearing, thin gentleman. Hard of hearing. Alert. Conversant. HEENT: Atraumatic. Eyes: Left eyelid is slightly edematous and slightly droopy. Left-sided facial droop. Mouth: Dry mucous membranes. No erythema or lesions. Neck: supple with no adenopathy. LUNGS: Diminished throughout but clear. CARDIAC: Regular rate and rhythm, no rubs, murmurs or gallops. ABDOMEN: Soft, nontender, nondistended, bowel sounds normal. BACK: No CVA tenderness. EXTREMITIES: No trauma. No edema. Generally weak. NEURO: Alert and oriented, cranial nerves 2-12 are intact with the exception of left-sided facial droop. Motor strength: Diminished in the right hand, significant weakness in the right leg. SKIN: Warm and dry, no rash. PSYCHIATRIC: Normal mentation, no agitation. Portions of this note were transcribed by a director of medical education. I personally performed a history, physical exam, medical decision making, and confirmed accuracy of information the transcribed note. ED Course: 68 y/o male presents via EMS on a stroke alert. Pt last seen normal around 23: 00. He is not currently in the window for tPA administration. Plan for CT head. 15:21 BGL 128 in the ED. 15:27 CT demonstrates subdural with area of acute hemorrhage. Radiologist report pending. 15:[address] Spicer, radiologist. 12mm subacute subdural on the right with area of active hemorrhage. 15:32 Reassessed patient. Discussed imaging results with patient and his family. 15:[address] Bonilla, neurosurgeon web operations manager. He is currently scrubbed in on a surgery. Dr. Flores is backup, plan to consult with her. Dr. Flores recommends admission to step-down. Patient will be admitted to the medicine service. Dr. Nu Chandler admitting, Neurosurgery will follow. Conversation held with the family again concerning implications of the subdural , plan for close observation, potential need for surgery. Patient to be NPO at the current time. Laboratory evaluation demonstrates field blood with a glucose of 37 (this was the sample that was 57 per the paramedics). LFTs and lipase also added. MDM: Differential diagnoses the patient's presenting complaints was considered including but not limited to intracranial injury, TIA, ischemic cerebrovascular accident, hemorrhagic cerebrovascular accident, hypoglycemia, complex migraine , metastases, tumor, seizure, or electrolyte abnormality. - Data Points Imaging Results: Imaging Impressions Head CT 07/04/18 15:18 Impression: 1. Subacute and acute subdural hematoma over the right parietal convexity, with mild mass effect. 2. Sclerosis of the bony calvarium compatible with known prostate cancer metastases. Results discussed with Dr. Kim Lugo at 3:30 PM. Laboratory Results: Laboratory Results 07/04/18 15:10 07/04/18 15:10 07/04/18 07/04/18 07/04/18 15:29 15:21 15:19 WBC RBC Hgb POC Hgb 9.5 gm/dL L gm/dL (13.7-17.5) Hct POC Hct 28 % L % (40-51) MCV MCH MCHC RDW Plt Count MPV Neut % (Auto) Lymph % (Auto) Summers % (Auto) Eos % (Auto) Baso % (Auto) Nucleat RBC Rel Count Absolute Neuts (auto) Absolute Lymphs (auto) Absolute Monos (auto) Absolute Eos (auto) Absolute Basos (auto) Absolute Nucleated RBC Immature Gran % Immature Gran # RBC/WBC/PLT Morphology Platelet Estimate PT INR POC Sodium 130 mEq/L L mEq/L (135-145) Sodium POC Potassium 4.3 mEq/L mEq/L (3.3-5.0) Potassium POC Chloride 96 mEq/L L mEq/L (97-110) Chloride Carbon Dioxide Anion Gap POC BUN 30 mg/dL H mg/dL (7-23) BUN Creatinine POC Creatinine 1.5 mg/dL H mg/dL (0.7-1.3) Estimated GFR Glucose POC Glucose 138 mg/dL H mg/dL 40 mg/dL L mg/dL (70-100) (70-100) Calcium Total Bilirubin Conjugated Bilirubin Unconjugated Bilirubin AST ALT Alkaline Phosphatase POC Troponin I 0.00 ng/mL ng/mL (0.00-0.08) Total Protein Albumin Lipase 07/04/18 07/04/18 07/04/18 15:10 15:10 15:10 WBC RBC Hgb POC Hgb Hct POC Hct MCV MCH MCHC RDW Plt Count MPV Neut % (Auto) Lymph % (Auto) Summers % (Auto) Eos % (Auto) Baso % (Auto) Nucleat RBC Rel Count Absolute Neuts (auto) Absolute Lymphs (auto) Absolute Monos (auto) Absolute Eos (auto) Absolute Basos (auto) Absolute Nucleated RBC Immature Gran % Immature Gran # RBC/WBC/PLT Morphology Platelet Estimate PT 13.7 SEC SEC (12.0-15.0) INR 1.03 (0.83-1.16) POC Sodium Sodium 129 mEq/L L mEq/L (135-145) POC Potassium Potassium 4.5 mEq/L mEq/L (3.3-5.0) POC Chloride Chloride 96 mEq/L L mEq/L (97-110) Carbon Dioxide 24 mEq/l mEq/l (22-31) Anion Gap 9 mEq/L mEq/L (8-16) POC BUN BUN 33 mg/dL H mg/dL (7-23) Creatinine 1.4 mg/dL H mg/dL (0.7-1.3) POC Creatinine Estimated GFR 51 Glucose 37 mg/dL L* mg/dL (70-100) POC Glucose Calcium 9.2 mg/dL mg/dL (8.5-10.4) Total Bilirubin 1.0 mg/dL mg/dL (0.1-1.4) Conjugated Bilirubin 0.5 mg/dL mg/dL (0.0-0.5) Unconjugated Bilirubin 0.5 mg/dL mg/dL (0.0-1.1) AST 134 IU/L H IU/L (17-59) ALT 47 IU/L IU/L (21-72) Alkaline Phosphatase 267 IU/L H IU/L (38-126) POC Troponin I Total Protein 5.9 g/dL L g/dL (6.3-8.2) Albumin 2.8 g/dL L g/dL (3.5-5.0) Lipase 58 IU/L IU/L (23-300) 07/04/18 15:10 WBC 3.02 10^3/uL L 10^3/uL (3.80-9.50) RBC 3.41 10^6/uL L 10^6/uL (4.40-6.38) Hgb 9.5 g/dL L g/dL (13.7-17.5) POC Hgb Hct 27.6 % L % (40.0-51.0) POC Hct MCV 80.9 fL L fL (81.5-99.8) MCH 27.9 pg pg (27.9-34.1) MCHC 34.4 g/dL g/dL (32.4-36.7) RDW 18.0 % H % (11.5-15.2) Plt Count 36 10^3/uL L 10^3/uL (150-400) MPV 10.1 fL fL (8.7-11.7) Neut % (Auto) 67.8 % % (39.3-74.2) Lymph % (Auto) 16.6 % % (15.0-45.0) Summers % (Auto) 10.6 % % (4.5-13.0) Eos % (Auto) 1.3 % % (0.6-7.6) Baso % (Auto) 0.7 % % (0.3-1.7) Nucleat RBC Rel Count 0.0 % % (0.0-0.2) Absolute Neuts (auto) 2.05 10^3/uL 10^3/uL (1.70-6.50) Absolute Lymphs (auto) 0.50 10^3/uL L 10^3/uL (1.00-3.00) Absolute Monos (auto) 0.32 10^3/uL 10^3/uL (0.30-0.80) Absolute Eos (auto) 0.04 10^3/uL 10^3/uL (0.03-0.40) Absolute Basos (auto) 0.02 10^3/uL 10^3/uL (0.02-0.10) Absolute Nucleated RBC 0.00 10^3/uL 10^3/uL (0-0.01) Immature Gran % 3.0 % H % (0.0-1.1) Immature Gran # 0.09 10^3/uL 10^3/uL (0.00-0.10) RBC/WBC/PLT Morphology TNP Platelet Estimate DECREASED L (ADEQ) PT INR POC Sodium Sodium POC Potassium Potassium POC Chloride Chloride Carbon Dioxide Anion Gap POC BUN BUN Creatinine POC Creatinine Estimated GFR Glucose POC Glucose Calcium Total Bilirubin Conjugated Bilirubin Unconjugated Bilirubin AST ALT Alkaline Phosphatase POC Troponin I Total Protein Albumin Lipase Medications Given: Hydromorphone HCl (Dilaudid) 0.5 mg IVP Q4HRS PRN PRN Reason: Pain, Severe Unable to Take PO Stop: 07/14/18 16:01 Last Admin: 07/04/18 16:05 Dose: 0.5 mg Discontinued Medications Sodium Chloride (Ns) 500 mls @ 1,000 mls/hr IV EDNOW ONE PRN Reason: Protocol Stop: 07/04/18 16:31 Last Admin: 07/04/18 16:07 Dose: 500 mls Point of Care Test Results: Chemistry 07/04/18 07/04/18 07/04/18 15:29 15:21 15:19 POC Sodium 130 mEq/L L mEq/L (135-145) POC Potassium 4.3 mEq/L mEq/L (3.3-5.0) POC Chloride 96 mEq/L L mEq/L (97-110) POC BUN 30 mg/dL H mg/dL (7-23) POC Creatinine 1.5 mg/dL H mg/dL (0.7-1.3) POC Glucose 138 mg/dL H mg/dL 40 mg/dL L mg/dL (70-100) (70-100) POC Troponin I 0.00 ng/mL ng/mL (0.00-0.08) ISTAT H&H 07/04/18 15:19 POC Hgb 9.5 gm/dL L gm/dL (13.7-17.5) POC Hct 28 % L % (40-51) General Initial Vital Signs: Initial Vital Signs Temperature (C) 36.4 C 07/04/18 15:23 Heart Rate 85 07/04/18 15:23 Respiratory Rate 16 07/04/18 15:23 Blood Pressure 106/55 L 07/04/18 15:23 O2 Sat (%) 97 07/04/18 15:23 O2 Delivery Mode Room Air Allergies/Adverse Reactions: No Known Allergies Allergy (Verified 06/25/18 15:07) Home Medications: Medication Instructions Recorded oxyCODONE IR [Oxycodone Ir (*)] 5 - 10 mg PO Q6H PRN 03/23/18 DULoxetine [Cymbalta 30 MG (*)] 30 mg PO DAILY 06/20/18 Fludrocortisone Acetate [Florinef] 0.1 mg PO DAILY 06/20/18 traZODone [traZODONE 100MG (*)] 100 mg PO HS 06/20/18 Acetaminophen [Tylenol ES 500 mg 1,000 mg PO BID 07/04/18 (*)] Departure - Departure Disposition: [facility] Acute Clinical Impression: Subacute subdural hematoma, Right sided weakness Condition: Fair Report Scribed for: Kim Lugo Report Scribed by: Sheela Rose Date of Report: 07/04/18 Time of Report: 16:52
[2018-07-04 15:32] LABS: INR 1.03 (0.83-1.16); PROTIME(PATIENT) 13.7 SEC (12.0-15.0)
[2018-07-04 16:00] LABS: PLATELET COUNT 36 10^3/uL (150-400)
[2018-07-04] MEDS ORDERED: NS 500 ML IV ONE (16:02)
[2018-07-04] MEDS ORDERED: HYDROmorphONE/DILAUDID 2 MG/ML INJ IVP PRN (16:02)
[2018-07-04] MEDS ORDERED: HYDROmorphONE/DILAUDID 1 MG/ML INJ ONE (16:03)
--- NOTE | 2018-07-04 16:20 | ASMTCMCOM ---
CM Note CM Note Notes: Pt in FED on stroke alert. Her lives at home with his family and has been diagnosed with Metastatic prostate cancer. Pt has a number of family members in the room. Currently awaiting plan from neurosurgeon. Pt has DNR. Ongoing CM needs to be assessed. Date Signed: 07/04/2018 04:20 PM Electronically Signed By:Yazan Hinkle LCSW
[2018-07-04] MEDS ORDERED: oxyCODONE IR 5 MG TAB PO PRN (17:18)
[2018-07-04] MEDS ORDERED: POLYETHYLENE GLYCOL 3350 17 GM PKT PO PRN (18:15)
[2018-07-04] MEDS ORDERED: MAGNESIUM HYDROXIDE 30 ML UDCUP PO PRN (18:15)
[2018-07-04] MEDS ORDERED: HYDROmorphONE/DILAUDID 1 MG/ML INJ IVP PRN (18:15)
[2018-07-04] MEDS ORDERED: ACETAMINOPHEN 500 MG TAB PO PRN (18:15)
[2018-07-04] MEDS ORDERED: LACTULOSE 20 GM/30 ML UDCUP PO PRN (18:15)
[2018-07-04] MEDS ORDERED: PROMETHAZINE HCL 25 MG/ML INJ IVP PRN (18:15)
[2018-07-04] MEDS ORDERED: BISACODYL 10 MG SUPP PR PRN (18:15)
[2018-07-04] MEDS ORDERED: traMADol 50 MG TAB PO PRN (18:15)
[2018-07-04] MEDS ORDERED: ONDANSETRON 4 MG/2 ML VIAL IVP PRN (18:15)
[2018-07-04] MEDS: D5W NS 1,000 ML IV SCH (18:50)
--- NOTE | 2018-07-04 18:54 | GHP ---
DATE OF ADMISSION: 07/04/2018 Please note, that this patient was initially intended to be an admitted primarily under the neurosurg barbie service. However, after arrival to the step-down unit, I got a call from Dr. Lugo in the [facility] room saying that Neurosurgery is requesting that we be the primary which I am happy to assume care at this time although there was a delay in notification of Hospitalist Medicine. HISTORY: The patient is a 68-year-old male with a history of treatment refractory metastatic prostat e cancer. He has no further chemo options. Hospice has been recommended. However, he has not been ready in the past. He has transfusion-dependent pancytopenia and gets transfused packed red blood ce lls weekly. He comes in today as a stroke alert. He slept until 11 o'clock this morning. When he awoke, he had weakness in his right arm and right leg as well as slurred speech. EMS was called. Glucose at the s cene was 37. His focal neuro signs improved dramatically after getting D10. Head CT, however, shows an acute to subacute subdural hematoma. Neurosurgery was consulted and initially accepted the patie nt at admission until the complicated medical situation became more apparent. According to his , the patient has been doing relatively poorly at home. He has had low appetite . He has eaten almost nothing. His only trauma with a fall 3 months ago where he hit his head. He was recently treated for urinary tract infection with antibiotics. He recently had an admission and was discharged on June 22 when he was admitted with hypotension and anemia which got better with IV fluids and a blood transfusion. He was discharged. He recently had bilateral pleural effusions tap ped as an outpatient on June 29. Cytology was negative. In the past, he had always recommended co ntinuation of full code status, but today he is requesting DNR and did at 1 point say during the inte rview, "I am a dying man," and he is not sure if he wanted to even pursue neurosurgery if it were rec ommended. PAST MEDICAL HISTORY: 1. Metastatic prostate cancer. Treatment refractory. Off chemo. 2. 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 3. Continuous narcotic dependency due to chronic pain. 4. 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 5. Chronic hyponatremia. PAST SURGICAL HISTORY: Radical prostatectomy. MEDICATIONS: Please see computer record for full detailed list. ALLERGIES: No known drug allergies. SOCIAL HISTORY: No smoking. No alcohol. Lives with his . CODE STATUS: Now DNR. REVIEW OF SYSTEMS: Complete review of systems obtained. Review of systems negative on constitutiona l, HEENT, GI, pulmonary, cardiovascular, , hematology, endocrine, psych, except for positives and n egatives as in HPI. FAMILY HISTORY: Reviewed noncontributory to presenting complaint. PHYSICAL EXAMINATION: GENERAL APPEARANCE: Well-developed, well-nourished male, in no acute distress . VITAL SIGNS: Temperature is 36.4, pulse 80, blood pressure 110/63, satting 95% on room air. EYES : Normal conjunctivae. Pupils react to light. ENT: Normal ears and nose. Hearing is hard of hear ing. Normal lips and teeth. MOUTH: Oropharynx is moist. NECK: Trachea midline. No thyromegaly. CHEST: Normal respiratory effort. LUNGS: Clear to auscultation bilaterally. CARDIOVASCULAR: Reg ular rhythm. No murmur. No extremity edema. ABDOMEN: Soft, nontender. No hepatosplenomegaly. SK IN: Warm, dry, intact without rash. MUSCULOSKELETAL: No cyanosis, clubbing. Strength is currently actually 5/5 upper and lower extremities having regained nearly all of his strength on the right okng e. He does have a chronic left-sided facial droop, due to his metastases pressing on the facial nerv e. His tongue deviates to the right. He has normal sensation to light touch. PSYCH: Alert and orie nted x3. Affect is depressed but normal judgment and insight. Normal memory. LABORATORY DATA: White count 3.02, hematocrit 27.6, platelets 36. Sodium 129, potassium 4.5, chlori de 96, bicarb 24, BUN 33, creatinine 1.4, glucose 37, INR is 1.03. Troponin is negative. AST 134, a lkaline phosphatase 267, albumin 2.8. EKG viewed by me. My personal interpretation normal sinus rhy thm. No ST or T-wave changes. Head CT shows acute to subacute subdural hematoma. This case was personally discussed with Dr. Kim Lugo. She initially admitted the patient to step -down unit with neurosurgery as the primary attending. Neurosurgery has since notified her that they do not want to be attending due to the complex nature of his other medical problems and has requeste d we assume the attending services. This patient was already on the step-down unit at the time of he r call to me. ASSESSMENT AND PLAN: 1. Subdural hematoma. Acute to subacute. Neurosurgery to see the patient in consultation. We will transfuse platelets to keep his platelets greater than 50 given the acute bleed. 2. Pancytopenia secondary to metastatic prostate cancer, transfusion-dependent. He does not need re d cells at this time but does need platelets as discussed above. We will follow this closely. 3. Metastatic prostate cancer. Treatment refractory. No further chemotherapy options. Hospice has been recommended by Oncology. It sounds like he is closer to accepting this as a treatment plan. W ill consult Palliative Care. 4. Hypoglycemia. I suspect this is due to poor oral intake in combination with his widespread malig slick. We will start him on D5 normal saline and follow fingerstick blood glucoses closely. 5. Acute renal failure and hyponatremia. This is clearly due to hypovolemia. Will administer rock l saline and follow. 6. Bilateral pleural effusion status post recent thoracentesis. He is not currently having respirat ory complaints. CODE STATUS: DNR. ADMISSION STATUS: 1. Will admit to inpatient as he is medically complex and anticipate greater than 2 midnights. 2. DVT prophylaxis. He is high risk. Although with his acute bleeding into the brain pharmacologic prophylaxis is contraindicated so will prescribe SCDs. /[id number]/MODL
[2018-07-04] MEDS: ACETAMINOPHEN 500 MG TAB PO SCH (18:56)
--- NOTE | 2018-07-04 19:23 | GCON ---
DATE OF CONSULTATION: 07/04/2018 REASON FOR CONSULTATION: Acute/subacute right frontal subdural hematoma with neurological changes. HISTORY OF PRESENT ILLNESS: This patient is an unfortunate 68-year-old man with stage IV metastatic prostate cancer. His states that at approximately 11:30 this morning he developed acute weaknes s and hemipareses. He is unable to use his right arm or right leg and was unable to sit up. He was falling to the left and had slurred speech. They were concerned about stroke and therefore called 91 1. Upon paramedics' arrival, they noticed that he had a blood glucose of 57. He was given D10 and reche ck of his glucose was 137. His states that the glucose improved the patient's weakness to the p oint where he was essentially back to his baseline. A head CT was then obtained in the emergency department, which demonstrated a subdural hematoma for w ron a neurosurgical consultation was requested. He was admitted to the intensive care unit after be ing admitted to the medical service. At this time, the patient denies any headaches. He denies any focal weakness of the upper or lower e xtremities. No numbness, tingling, pain or weakness. He does have some baseline shoulder pain. No new chest pain. He had a fall 3 months ago but no inciting traumatic event before this event. The also states that the patient is terminal with regard to his cancer and has only approximatel y 4 weeks to 1 month left to live. PAST MEDICAL HISTORY: Metastatic prostate cancer with known metastases to the skull. SOCIAL HISTORY: The patient is and lives with his family members in [place]. He is retired. No alcohol use. ALLERGIES: No known drug allergies. MEDICATIONS: 1. Oxycodone 5 to 10 mg p.o. q.6 hours p.r.n. 2. Cymbalta 30 mg p.o. daily. 3. Florinef 0.1 mg p.o. daily. 4. Trazodone 100 mg p.o. q.h.s. 5. Tylenol 1000 mg p.o. b.i.d. FAMILY HISTORY: Noncontributory and not relevant. MEDICAL DECISION-MAKING: Patient underwent a head CT without contrast, at [facility] and reviewed by myself on the PAC system. There is evidence of a subacute and acute subdural hemato ma of the right parietal convexity, with mild mass effect. There is sclerosis of the bony calvarium compatible with known prostate cancer metastases. LABS: White count 3.0, hematocrit 27.6, platelets 36. INR 1.03. Sodium 129, potassium 4.5, BUN 33, creatinine 1.4. PHYSICAL EXAMINATION: VITAL SIGNS: Blood pressure 110/73, heart rate 80, respiratory rate 13, satti ng 95% on room air, temp 36.4. GENERAL: The patient is lying in the bed. His is at the [facility]. He appears to be somewhat sleepy but does awake to conversation. He is hard of hearing. He is i ll-appearing. HEENT: Head is atraumatic, normocephalic. Pupils are equal, round, and reactive to l ight bilaterally. Extraocular movements are intact. EXTREMITIES: He has 5/5 coke still cleaner strength to the b iceps, triceps, deltoids, bilateral hip flexion, plantar dorsiflexion, and extensor hallucis longus b ilaterally. Sensory: He has intact sensation to light touch throughout all major dermatomes of the bilateral upper and lower extremities throughout. Reflexes are 2+ at the bilateral brachioradialis and patella. NEUROLOGIC: Cranial nerves 2 through 12 are intact. Tongue protrudes midline. The face appears to be symmetric. He is hard of hearing. ASSESSMENT/PLAN: This patient is a 68-year-old gentleman who is terminal with regard to stage IV met astatic cancer, who presents with acute subacute right-sided subdural hematoma and transient weakness , which has now completely resolved. I discussed with the patient and his that the possible dieter ologies include a subdural hematoma, but given the fact that it has resolved, it could be secondary t o his glucose, which was treated en route in the ambulance versus a transient ischemic attack versus a seizure related to the subdural hematoma. We are going to start him on Keppra for seizure prophyla xis. Because his platelets were only 37 with the hemorrhage, we plan to transfuse him with platelets for a goal platelet of 80,000. I discussed with the patient extensively that given the terminal issa ure of his overall health, no surgery is indicated and in which he declines. Both the and the usband agree to this. He has been admitted to the medical service and I discussed the case with the primary service. We will plan on seeing the patient again in the morning and get a head CT in the mo rning to evaluate the hematoma. Thank you this consultation. /[id number]/MODL
[2018-07-04] MEDS ORDERED: MEPERIDINE 25 MG/0.5 ML AMP IVP ONE (20:10)
[2018-07-04] MEDS: SENNOSIDES/DOCUSATE SODIUM TAB PO SCH (20:37)
--- NOTE | 2018-07-04 20:39 | CPEKG ---
Test Reason : OPEN Blood Pressure : / mmHG Vent. Rate : 081 BPM Atrial Rate : 081 BPM P-R Int : 152 ms QRS Dur : 084 ms QT Int : 382 ms P-R-T Axes : 036 -31 -06 degrees QTc Int : 444 ms Sinus rhythm Low voltage, extremity leads Confirmed by Kim Lugo ([id number]) on 07/04/2018 8:39:27 PM Referred By: Confirmed By:Kim Lugo
[2018-07-04 20:50] LABS: PLATELET COUNT 46 10^3/uL (150-400)
[2018-07-04] MEDS: traZODone 100 MG TAB PO SCH (23:24)
[2018-07-04] MEDS: levETIRAcetam 500 MG TAB PO SCH (23:24)
[2018-07-05] MEDS ORDERED: NS 1,000 ML IV ONE (00:05)
[2018-07-05 01:05] LABS: PLATELET COUNT 60 10^3/uL (150-400)
[2018-07-05] MEDS: D5W NS 1,000 ML IV SCH ×2 (04:20→22:52)
[2018-07-05 05:38] LABS: PLATELET COUNT 63 10^3/uL (150-400)
--- NOTE | 2018-07-05 07:09 | NEUSURGPN ---
Assessment/Plan: Assessment: 68 yo male that is admitted to IM with stage 4 metastatic prostate cancer as well and acute/subacute SDH. Pt had transient right hemiparesis Plan: -acute/subacute SDH: CT done this am shows stable findings-will check reading from radiologist and likely sign off after reading confirmed -PLTs was 36 now 63 -PT/OT/ST-CPM -pt had transient weakness on right that was better with glucose given in ambulance -no plans for surgery per Dr Bonilla -Kepp 500 BID -goal of PLTs close to 80 -H/H 05/21-will defer to IM the need for transfusion as had transfusion reaction to PLTs -call with any questions or concerns -pt understands and agrees d/w Dr Bonilla Subjective: Awake and alert. NAD. No new complaints or concerns. No new events per RN. No hernandez/neck/chest/abd or gu complaints. No f/c/n/v/d. Objective: AAO x 3, PERRLA/EOMI no droop mild left lid lag c/w hx per Dr Bonilla CN 2-12 grossly intact 5/5 BUE/BLE = + lt touch Neuro Check Frequency: per routine Urinary Catheter in Place: No - Physician Discussed Patient with : Irene Patient Seen by : Irene Neurosurgery Physical Exam - Vitals, I&O, Labs I and O 07/04/18 07/05/18 07/06/18 05:59 05:59 05:59 Intake Total 2799 Output Total 325 Balance 2474 Weight 54.431 kg Intake: Oral (ml) 60 IV Infused (ml) 2375 D5w Ns 1,000 ml @ 100 mls 875 /hr IV CONT COLIN Rx#: [id number] Ns 1,000 ml @ 1000 mls/hr 1000 IV ONCE ONE Rx#: [id number] Platelets (ml) 364 Output: Urine (ml) 325 Bedside Commode 100 Incontinence 25 Urinal 200 Other: Intake Quantity No Sufficient Number of Voids 0 Bedside Commode 1 Incontinence 1 Number of Stools Bedside Commode 0 Bladder Scan Volume (ml) Incontinence 36 Vital Signs Temp Pulse Resp BP Pulse Ox 36.9 C 87 13 102/67 95 07/05/18 04:17 07/05/18 05:13 07/05/18 04:05 07/05/18 05:13 07/05/18 05:13 Laboratory Results 07/05/18 05:14 07/05/18 05:14 ICD10 Worksheet Patient Problems: Problems Problem Status Onset Right sided weakness Acute Subacute subdural hematoma Acute Anemia Acute Difficulty breathing Acute Failure to thrive in adult Acute Hypotension Acute Pleural effusion Acute Prostate cancer Acute Severe anemia Acute
[2018-07-05] MEDS: FLUDROCORTISONE ACETATE 0.1 MG TAB PO SCH (10:35)
[2018-07-05] MEDS: SENNOSIDES/DOCUSATE SODIUM TAB PO SCH ×3 (10:36→21:21)
[2018-07-05] MEDS: ACETAMINOPHEN 500 MG TAB PO SCH ×2 (10:36→20:37)
[2018-07-05] MEDS: levETIRAcetam 500 MG TAB PO SCH ×2 (10:36→20:37)
[2018-07-05] MEDS: DULoxetine 30 MG CAP PO SCH (10:36)
--- NOTE | 2018-07-05 11:17 | GCON ---
ONCOLOGY CONSULTATION REASON FOR CONSULTATION: Metastatic prostate cancer with admission for altered mental status. HISTORY OF PRESENT ILLNESS: The patient is a very pleasant 68-year-old male who is followed by Dr. Maxx reed for advanced metastatic treatment refractory prostate cancer. His oncology history dates clair k to 2005 when he was diagnosed with a T3 N0 [place] 4 + 3 prostate cancer. He initially underwent a radical prostatectomy and had a local recurrence in 2008 treated with salvage radiation therapy. In 2015, he developed evidence of metastatic disease with a rising PSA and was started on abiraterone. He also received a brief trial of high-dose testosterone and then was started on enzalutamide in Dec. He continued to have progressive disease with a rise in PSA and was started on docetaxel in August of 2017. He tolerated this poorly and also developed transfusion-dependent anemia requir ing red blood cell transfusions approximately monthly. He had several non hemolytic febrile reaction s during the transfusion. His serum IgA level was measured and was slightly low at 43. In December, he received 2 doses of enzalutamide (immunotherapy), but again did not tolerate that well and he had ev idence of progressive disease based on nodules in the retroperitoneum and iliac nodes. These were bi opsied and confirmed to be a poorly differentiated prostate cancer. More recently, he has been treat ed with 4 weekly doses of carboplatin with an AUC of 2. Recent imaging has showed stable to slightly progressive disease. Last week, he underwent a CT pulmonary angiogram and was found to have bilater al pleural effusions. He did not have evidence of a pulmonary emboli. He had extensive metastatic d isease with pleural nodularity and liver and bone metastases. He underwent ultrasound-guided thorace ntesis on June 28, demonstrating 900 cc of cloudy red fluid. Cytology was negative for malignant c ells. The patient has ongoing progressive pancytopenia due in part from multiple prior therapies and bone m arrow suppression, but also likely underlying marrow involvement with prostate cancer. He has been r eceiving intermittent blood transfusions and platelet count has been low for several months. He was found to have an E coli UTI when seen in the office last week and was started on Bactrim. When Dr. Maxx reed saw him last week, he recommended hospice. The patient and his were not ready for that. They did establish a DNR. They wanted supportive transfusions but also understand that he is not a candidate for any additional therapy. During this admission, the patient was admitted yesterday after waking up at 11 in the morning with w eakness in his right arm and right leg as well as slurred speech. The paramedics came and his glucos e on the scene was 37. His focal neurologic symptoms appear to have resolved with administration of D10. However, head CT showed an acute to subacute subdural hematoma. Neurosurgery was consulted. G iven the fact that his focal neurologic symptoms resolved, neurosurgery did not feel that there was a surgical indication, especially in light of his advanced metastatic disease. Platelets were 37,000 at the time of the hemorrhage. He was transfused platelets with more recent platelet count of 63,000 . PAST MEDICAL HISTORY: Otherwise unremarkable. FAMILY HISTORY: Notable for mother with breast cancer in her 50s and a sister with thyroid cancer. SOCIAL HISTORY: He does not smoke and drinks alcohol rarely. He is to Jennifer and lives here in [place]. REVIEW OF SYSTEMS: 10-point review of systems is negative other than HPI. PHYSICAL EXAM: GENERAL: He is a chronically ill-appearing, awake, and coherent male who appears com fortable in bed. VITAL SIGNS: Blood pressure is 92/49, heart rate 86, O2 saturation 96%. He is afe brile. HEENT: Left eyelid is closed and weak due to prior radiation to the orbital region for bony metastasis. Right pupil is reactive. LUNGS: Clear anteriorly, but decreased breath sounds bilatera lly. HEART: Regular rate. ABDOMEN: Soft, nontender. NEUROLOGIC: Grossly nonfocal. LABORATORY DATA: White blood cell count 1.8, hematocrit 21.3, platelets 63,000. Creatinine 1.2. So dium 130. PT/INR normal. Urine with 25-50 WBCs and trace bacteria and 2+ blood. IMPRESSION: This is a 68-year-old male with advanced refractory metastatic prostate cancer who was a dmitted with altered mental status and focal neurologic symptoms that appear to have resolved primari ly with the administration of D50. His glucose was 37 when he was found at home. CT scan shows evid ence of acute and subacute subdural hematomas. The patient and the patient's understand that there are no additional treatment options availabl e for the patient. He is a DNR. The patient's firmly stated that she wanted to continue with s upportive care and that they were not ready for hospice. Supportive care in her mind was ongoing tra nsfusions of both blood and platelets. She reports that she is not able to care for him alone at [facility] and is interested in him staying at home with 24 hour care. She does not want him to be placed in a correction facility. I reviewed with her that platelet transfusions are a very temporizing intervention and likely he will develop progressive thrombocytopenia again in just a couple of days. We also discussed that the kaleb telet transfusions themselves would not be expected to prolong his life in any meaningful way in [facility] t of his advanced underlying malignancy. I suspect his pancytopenia is related to bone marrow suppre ssion from prior therapy, but also likely marrow involvement with diffuse prostate cancer. Palliative Care will be visiting later today with the patient and his . Hospice is appropriate f rom a medical standpoint, however, emotionally, they do not appear to be at a place to accept that ri ght now. We will continue to follow along with you and try to guide the patient and his family in e most appropriate direction. /[id number]/MODL
--- NOTE | 2018-07-05 13:13 | GCON ---
CRITICAL CARE CONSULT DATE OF CONSULTATION: 07/05/2018 HISTORY OF PRESENT ILLNESS: This patient is a 68-year-old male with a history of widely metastatic p rostate cancer who has been told by Oncology that hospice was his best option, but he declined this a nd has wanted to continue his therapy. In any case, he was in his usual state of health earlier just prior to admission, when he developed somnolence and weakness in the left hand. EMS was called, and he was found have a glucose of 37, was given D50 with improvement in his symptoms. He was subsequen tly brought to the emergency department, where a head CT showed both acute and subacute subdural vivian mayco. He was evaluated by Neurosurgery, but not felt to be a surgical candidate. His platelets on arrival were 36. He has been transfusion dependent, getting blood transfusions about once a week, oc casionally for red cells if his hemoglobin was less than 7 and platelets if his platelet count was be low 50,000. His last transfusions were about a week ago. Since the D50 and platelets that were avalos sfused, he has had an improvement in his mental status as well as his weakness, according to his . Repeat head CT showed stability of the previous hematomas. She made it quite clear on discussion that she was not interested in hospice at this time and wanted to continue with aggressive therapy an d actually suggested that he get additional platelet and blood transfusions at this time. The patien t himself was mildly somnolent and did not really participate very much in the conversation. REVIEW OF SYSTEMS: Otherwise negative. PAST MEDICAL HISTORY: Includes: 1. Metastatic prostate cancer that was first diagnosed in 2005, had recurrence in 2008, was treated with radical prostatectomy initially as well as chemotherapy, some radiation therapy. He was followe d at the [facility] and then transferred his care to [facility], where he has been seen a couple of times and most recently when hospice was in fac t suggested, as there was no further therapy for that. Metastatic disease includes the bone, retrope ritoneum, liver, and adrenal glands. 2. Transfusion-dependent anemia and thrombocytopenia. 3. He has had transfusion reactions in the past. 4. Orbital tumor. There is little data available at this time. 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 6. Possible adrenal insufficiency since he has been on Florinef. PAST SURGICAL HISTORY: Only includes radical prostatectomy. SOCIAL HISTORY: He is a nonsmoker. FAMILY HISTORY: Noncontributory. MEDICATIONS: At this time include: Cymbalta, Florinef, Dilaudid, Keppra, Milk of Magnesia, Zofran, oxycodone, MiraLAX, Phenergan, Senokot, Ultram, trazodone. PHYSICAL EXAMINATION: VITAL SIGNS: He is afebrile. Blood pressure 103/50; respirations 15; oxygen saturation 95% on room air; heart rate of 88, normal sinus rhythm. GENERAL: He is somnolent and ans wers questions appropriately. Follows commands, but is not terribly talkative. HEENT: His left eye remains closed, his right eye has a normal pupil, equally round and reactive to light. Mucous membr anes are moist without erythema or exudate. NECK: Supple without adenopathy or jugular vein distent ion. LUNGS: Breath sounds are distant, but clear to auscultation bilaterally without wheezes, rubs, or rales. HEART: Regular rate and rhythm without obvious murmurs, rubs, or gallops. ABDOMEN: Sof t, nontender, nondistended without hepatosplenomegaly. EXTREMITIES: No clubbing, cyanosis, or edema . NEUROLOGICAL: Weakness in the left hand; this is 3 to 4 out of 5. 5/5 strength in the right hand and upper extremity. Lower extremities are also mildly weak, but 4/5 bilaterally. Deep tendon refl exes are intact. SKIN: Warm and dry without rashes. OBJECTIVE DATA: Includes the head CTs as described above. His white count this morning is 1.8, vivian tocrit of 21.3, hemoglobin 7.4, platelets of 63. Sodium is 130, potassium 4.1, chloride 102, bicarb 22, BUN 27, creatinine 1.2, AST was 105, total bilirubin 0.8, alkaline phosphatase 203, albumin 2.2. Urinalysis showed 50 to 180 red cells, 25 to 50 white cells. Blood cultures are negative, including urine. ASSESSMENT/PLAN: 1. Subdural hematomas. These are thought to be nonoperative and small and remain stable. Neurosurg barbie has suggested a platelet count of 80. Dr. Self has also been in to consult with the patient fr om Oncology, and she will discuss those with Neurosurgery in terms of the absolute number. In any ca se, he appears to be quite stable at this time from his head CTs. I am satisfied with the platelet c ount of 50,000; at this point, I do not anticipate any worsening. Physical Therapy and Occupational Therapy have already been ordered to work with him and see what other needs he may have from that per spective. 2. Transfusion-dependent anemia and thrombocytopenia. We can look into the oncology records to find out what the normal threshold has been. As I said, I think 50,000 should be adequate in terms of leonard bdural hematomas, and his hemoglobin is greater than 7 at this time, so I do not feel additional avalos sfusions are required just now. 3. Hypoglycemia. The etiology is not exactly certain. His CT scans have shown tumor enveloping the adrenal glands. He has already been on Florinef and maintaining his blood pressure. It is possible that he is also having difficulty with glucocorticoid deficiency. I think a cortisol test and treat ing with hydrocortisone will be perfectly fine. His glucose is normal at the moment. 4. Widely metastatic prostate cancer with recommendations by Oncology for hospice care. His hernandez s been resistant to this. Palliative Care is going to see him today and will continue to have ivana araiza discussions about a poor prognosis and a difficult situation. /[id number]/MODL
--- NOTE | 2018-07-05 14:41 | ASMTCMCOM ---
CM Note CM Note Notes: Palliative Consult-met with patient and . Patient is very [place] but seemed to follow along with his 's wishes. She made it clear at the time that "they" did not want Hospice. They wanted to continue coming in for weekly infusion tx's and wanted access to hospital if needed. Patient's bedroom on the second floor. wanted PT's input as to whether or not he could go up and down stairs safely with help. PT has been ordered. She also wanted a list of private duty caregivers she could hire to help at home. A list was given to her. They have children and grandchildren in the [facility] that visit and are supportive. He was not interested at this time in renting a hospital bed and locating it in their 1st floor livingroom, "It wouldn't go with the decor." didn't seem that interested in being connected with Palliative Care either. Date Signed: 07/05/2018 02:40 PM Electronically Signed By:Liyah Toussaint LCSW
--- NOTE | 2018-07-05 15:17 | HOSPPROG ---
Hospitalist Progress Note Assessment/Plan: # SDH - non-operative - will transfuse platelets today - NSG ivolved # neurologic changes - suspect more due to hypoglycemia than SDH # hypoglycemia - unclear if due to hepatic mets, adrenal mets with AI - will check cortisol tomorrow am, may benefit from glucocorticoid - he is on floroinef currently # prostate cancer, metastatic - no further treatment options - he is transfusion dependent - geting approximately weekly transfusions - recent thoracentesis for malignant effusion # pancytopenia d/t malignancy # DANE - improved with IVF Subjective: discussed hospice directly with the patient Objective: Vital Signs Temp Pulse Resp BP Pulse Ox 36.7 C 88 15 103/50 L 95 07/05/18 11:41 07/05/18 11:41 07/05/18 11:41 07/05/18 11:41 07/05/18 11:41 Laboratory Results 07/05/18 05:14 07/05/18 05:14 07/04/18 07/05/18 07/06/18 05:59 05:59 05:59 Intake Total 2299 Output Total 325 Balance 1974 PT 13.7 SEC (12.0-15.0) 07/04/18 15:10 INR 1.03 (0.83-1.16) 07/04/18 15:10 - Time Spent With Patient Time Spent with Patient: greater than 35 minutes Time Spent with Patient: Greater than 35 minutes spent on this patients care, greater than 50% of time spent counseling, educating, and coordinating care regarding the above mentioned plan. - Physical Exam Constitutional: chronically ill appearing, cachectic, other (lying in bed) ICD10 Worksheet Patient Problems: Problems Problem Status Onset Severe anemia Acute Prostate cancer Acute Difficulty breathing Acute Hypotension Acute Pleural effusion Acute Anemia Acute Failure to thrive in adult Acute Subacute subdural hematoma Acute Right sided weakness Acute
--- NOTE | 2018-07-05 17:10 | PDMN ---
Medical Necessity Medical necessity: Pt meets IP criteria per MD & MCG M-85; est los >2 mn for eval/tx of acute/subacute subdural hematoma w/R-sided weakness, neurological changes, hypoglycemia, acute renal failure & hyponatremia; requiring further SDU monitoring, Neuro/Palliative consults, platelet transfusion, IVFs & therapies; hx recent hospitalization for bilateral pleural effusions s/p thoracentesis, metastatic prostate cancer & transfusion-dependent pancytopenia; per H&P & order 07/04/18
[2018-07-05] MEDS: traZODone 100 MG TAB PO SCH (20:37)
--- NOTE | 2018-07-05 21:55 | WOCRNPDOC ---
WOCRN Advanced Assessment Note - Skin Integrity Problem, Advanced Assess Gluteal Cleft Dermatitis Dressing Type: Mepilex Border Dressing Description: Clean/Dry, Intact Closure Description: Not Approximated Exudate Amount: Scant Exudate Color: Reddish/Yellow Exudate Characteristic(s): Serosanguinous Integumentary Issue Intervention: Dressing Removed Elvia Wound Tissue: Blanching, Erythema, Painful/Tender Wound Bed Color: Rosser Wound Bed Constitution: Red/Rosser - Non Granular Tissue Wound Edges: Well Defined Skin Integrity Problem Comment: Patient rolled to his right side with assist from this RN. Pants and underwear pulled down and mepilex sacral dressing removed. Skin to the gluteal cleft is red and blanching with several areas of partial thickness openings. The open areas have areas of maceration circumferentially indicating that the skin is regularly moist. I explained my findings to the patient and recommended that he allow the area to be open to air as much as possible. All questions answered. Recommend calazime cream to the skin BID and PRN. Wound care will round again later next week.
[2018-07-06 05:19] LABS: PLATELET COUNT 70 10^3/uL (150-400)
--- NOTE | 2018-07-06 09:56 | PDINTPN ---
[employer] Progress Note Assessment/Plan: 68 M with metastatic prostate cancer previously treated at and subsequently evaluated at [facility] and felt to have no further treatment options, admitted 07/04 with altered mental status and weakness as well as glucose 37. His symptoms improved ramatically with D50 but a head CT showed subacute small, multifocal SDHs. He has had transfusion dependent pancytopenia and his platelets were 36 on admission. He averages a platelet/RBC transfusion about weekly and was due just DIE CAST OPERATOR. He was evaluated by neurosurgery who suggested non-operative management and signed off. Hematology is also following. Of note, hospice has been recommended several times but he has requested ongoing aggressive care. He has been treated as an outpatient with Nacho for unclear reasons. * SDH- subacute and non-operative. Initial target per NS was 80, but hios repeat head CT and clinical status have remained stable or better and extensive discussion between hospitalists, oncology and CC agree that target now should be >50k since ongoing 80 will be difficult to achieve and maintain and is not likely to provide any additional benefit at this time. Continue with PT/OT * Hypoglycemia- he has tumor encasing his adrenal glands and there has been some suspicion for glucocorticoid deficiency. He has been getting D5NS since admission, but his random am cortisol was 10 (normal). Will dc D5 today and monitor glucose. If it falls, would perform stim test followed by likely chronic hydrocortisone. * Pancytopenia- related to underlying prostate cancer. Platelets are fine, but his Hgb is 6.7. This is very likely dilutional (5 liters net positive for 48 hrs ), but a unit of RBC may help with gait instability and symptoms of weakness. * Prostate cancer- while hospice seems appropriate, patient and are not interested in this path yet. Home hospice with transfusions is being considered at this time after palliative care consult 07/05. * Dispo: stable for oncology floor Subjective: c/o weakness and poor ambulation within room. Required assistance with walking Objective: Vital Signs Temp Pulse Resp BP Pulse Ox 36.6 C 93 14 111/71 95 07/06/18 07:47 07/06/18 07:47 07/06/18 07:47 07/06/18 07:47 07/06/18 07:47 Laboratory Results 07/06/18 05:05 07/06/18 05:05 07/05/18 07/06/18 07/07/18 05:59 05:59 05:59 Intake Total 2296 3347 Output Total 325 476 Balance 1974 2871 PT 13.7 SEC (12.0-15.0) 07/04/18 15:10 INR 1.03 (0.83-1.16) 07/04/18 15:10 Physical Exam - Physical Exam General Appearance: alert, no apparent distress EENT: PERRL/EOMI Neck: supple Respiratory: lungs clear, normal breath sounds, No respiratory distress, No accessory muscle use Cardiac/Chest: regular rate, rhythm, No edema Abdomen: non-tender, soft, No distended Skin: warm/dry, pallor (generalized), No cyanosis Lymphatic: no adenopathy Extremities: No pedal edema Neuro/Psych: alert, normal mood/affect, oriented x 3 ICD10 Worksheet Patient Problems: Problems Problem Status Onset Right sided weakness Acute Subacute subdural hematoma Acute Anemia Acute Difficulty breathing Acute Failure to thrive in adult Acute Hypotension Acute Pleural effusion Acute Prostate cancer Acute Severe anemia Acute
[2018-07-06] MEDS: FLUDROCORTISONE ACETATE 0.1 MG TAB PO SCH (10:03)
[2018-07-06] MEDS: ACETAMINOPHEN 500 MG TAB PO SCH ×2 (10:04→20:33)
[2018-07-06] MEDS: DULoxetine 30 MG CAP PO SCH (10:04)
[2018-07-06] MEDS: SENNOSIDES/DOCUSATE SODIUM TAB PO SCH ×2 (10:04→20:33)
[2018-07-06] MEDS: levETIRAcetam 500 MG TAB PO SCH ×2 (10:42→20:29)
[2018-07-06] MEDS: levOFLOXACIN ORAL 25 MG/ML 100 ML BOTTLE PO SCH (14:31)
--- NOTE | 2018-07-06 14:42 | ASMTCMCOM ---
CM Note CM Note Notes: Spoke with patient's , Jennifer. Jennifer states they want to go with a palliative care program, [facility] as they have a family friend who works there. Jennifer initially was asking about home health services but it was then clarified she meant home care services. Jennifer has already made arrangements with [facility] who will offer support. She hopes to layer care by having different people on different days. Jennifer says they do not want hospice at this time. No further needs. CM available for needs that might arise. Date Signed: 07/06/2018 02:39 PM Electronically Signed By:Iwona Dinh LCSW
--- NOTE | 2018-07-06 17:25 | HOSPPROG ---
Hospitalist Progress Note Assessment/Plan: Assessment: 68 yo M p/w acute paresis 2/2 acute hypoglycemia, SDH, pancytopenia Plan: # SDH. Acute, 2/2 thrombocytopenia, non-operative per NSGY, stable on repeat HCT -keep plts > 50k # hypoglycemia. Acute, likely 2/2 combination of hepatic/adrenal mets + possible persistent UTI -stop IVF now, and monitor gluc checks to determine whether patient can maintain euglycemia -d/w Dr. Gonsalez, we agree to keep on florinef, monitor gluc, and get stim test if reoccurs # prostate cancer, metastatic. Chronic, no further tx options, rendering patient weak -recent thoracentesis for malignant effusion # pancytopenia 2/2 malignancy and chemotherapy. Multifactoral, 2/2 marrow infiltration + chemo Rx -EKG w/o ischemia, NSR (personally interpreted) -transfuse 1u PRBC today, threshold 7.0, monitor CBC # DANE. 2/2 hypovolemia, resolved # Acute hyponatremia. 2/2 combination of hypovolemia + SIADH, resolved w/ IVF + fluid restriction # persistent UTI. POA, s/p 3 days of levofloxacin, repeat UA positive, ongoing urine sx -restart PO liq levofloxacin 750 x 4 days diet. regular ppx. high risk, holding pharm given above, SCDs code. DNR dispo. ADD 07/07, pending stabilization of above high level of medical complexity, high risk for worsening morbidity/mortality 2/ 2 issues outlined above. Subjective: patient feels weak Objective: Vital Signs Temp Pulse Resp BP Pulse Ox 35.9 C L 85 19 112/65 97 07/06/18 16:00 07/06/18 16:00 07/06/18 16:00 07/06/18 16:00 07/06/18 16:00 Laboratory Results 07/06/18 05:05 07/06/18 05:05 07/05/18 07/06/18 07/07/18 05:59 05:59 05:59 Intake Total 2299 3347 Output Total 325 476 Balance 1974 2871 PT 13.7 SEC (12.0-15.0) 07/04/18 15:10 INR 1.03 (0.83-1.16) 07/04/18 15:10 - Physical Exam Constitutional: no apparent distress, not in pain, chronically ill appearing, No uncomfortable Ears, Nose, Mouth, Throat: hard of hearing Cardiovascular: systolic murmur (II/ all valves), edema (trace bilat LE), No irregularly irregular, No tachycardia Respiratory: reduced air movement (bilat bases), No expiratory wheeze, No inspiratory crackles, No bronchial breath sounds, No respiratory distress Gastrointestinal: normoactive bowel sounds, soft, non-tender abdomen, no palpable masses, No distension Neurologic: AAOx3, sensation intact bilaterally, No weakness (motor 5/5 bilat UE /LE), No facial droop Psychiatric: interacting appropriately, not anxious, not encephalopathic, thought process linear ICD10 Worksheet Patient Problems: Problems Problem Status Onset Right sided weakness Acute Subacute subdural hematoma Acute Anemia Acute Difficulty breathing Acute Failure to thrive in adult Acute Hypotension Acute Pleural effusion Acute Prostate cancer Acute Severe anemia Acute
--- NOTE | 2018-07-06 17:45 | SOAPPROG ---
SOAP Progress Note Assessment/Plan: A/P: * Advance metastatic prostate cancer. No further treatment. * Transfusion-dependent anemia/thrombocytopenia. * Acute/chronic SDH. Pt/family desire to continue transfusion support, not hospice. Case management working with palliative care, etc. to determine how best to provide for needs at home. Transfusions clearly will only be temporizing and eventually ineffective. 07/06/18 17:43 Subjective: Laboratory Tests 07/06/18 05:05 WBC 1.98 L Hgb 6.7 L Plt Count 70 L Objective: Vital Signs Temp Pulse Resp BP Pulse Ox 35.9 C L 85 19 112/65 97 07/06/18 16:00 07/06/18 16:00 07/06/18 16:00 07/06/18 16:00 07/06/18 16:00 Laboratory Results 07/06/18 05:05 07/06/18 05:05 07/05/18 07/06/18 07/07/18 05:59 05:59 05:59 Intake Total 2299 3347 401 Output Total 325 476 Balance 1974 2871 401 PT 13.7 SEC (12.0-15.0) 07/04/18 15:10 INR 1.03 (0.83-1.16) 07/04/18 15:10 ICD10 Worksheet Patient Problems: Problems Problem Status Onset Right sided weakness Acute Subacute subdural hematoma Acute Anemia Acute Difficulty breathing Acute Failure to thrive in adult Acute Hypotension Acute Pleural effusion Acute Prostate cancer Acute Severe anemia Acute
[2018-07-06] MEDS: traZODone 100 MG TAB PO SCH (22:01)
[2018-07-07] MEDS: ACETAMINOPHEN 500 MG TAB PO SCH ×2 (08:04→09:20)
[2018-07-07] MEDS ORDERED: COSYNTROPIN 0.25 MG/2 ML SYRINGE IVP ONE (08:28)
[2018-07-07] MEDS: FLUDROCORTISONE ACETATE 0.1 MG TAB PO SCH (09:21)
[2018-07-07] MEDS: SENNOSIDES/DOCUSATE SODIUM TAB PO SCH (09:21)
[2018-07-07] MEDS: DULoxetine 30 MG CAP PO SCH (09:21)
[2018-07-07] MEDS: levETIRAcetam 500 MG TAB PO SCH (09:21)
--- NOTE | 2018-07-07 11:10 | ASMTCMCOM ---
CM Note CM Note Notes: Chart reviewed. Maverick Majano is working with family to help with planning transition to home with palliative care. Maverick to call [facility] and referral placed in allscripts. Per Maverick Majano, to meet with possible additional help this afternoon. CM to follow. Plan: Home with palliative and other care givers to assist. Date Signed: 07/07/2018 11:09 AM Electronically Signed By:Yuki Ludwig RN
[2018-07-07] MEDS ORDERED: ACETAMINOPHEN 650 MG/20.3 ML UDCUP PO PRN (11:21)
[2018-07-07] MEDS ORDERED: morphINE 10 MG/0.5 ML UDSYR PO PRN (11:22)
[2018-07-07] MEDS ORDERED: ACETAMINOPHEN 650 MG/20.3 ML UDCUP PO SCH (11:30)
[2018-07-07] MEDS: levOFLOXACIN ORAL 25 MG/ML 100 ML BOTTLE PO SCH (12:55)
[2018-07-07 13:01] VITALS: BP 104/52
[2018-07-07] MEDS ORDERED: HYDROCORTISONE 10 MG TAB PO SCH ×2 (13:30→16:00)
--- NOTE | 2018-07-07 14:43 | PDIAF ---
- Diagnosis Diagnosis: SDH, stage IV prostate cancer, pancytopenia Code Status: Do Not Resuscitate - Medication Management Discharge Medications: Medications to Continue on Transfer DULoxetine [Cymbalta 30 MG (*)] 30 mg PO DAILY 06/20/18 [Last Taken 07/03/18] Fludrocortisone Acetate [Florinef] 0.1 mg PO DAILY 06/20/18 [Last Taken 07/03/18 ] traZODone [traZODONE 100MG (*)] 100 mg PO HS 06/20/18 [Last Taken 07/03/18] Acetaminophen [Tylenol 650/20.3ML Oral Liq (*)] 1,000 mg PO BID #240 ml [Last Taken Unknown] Acetaminophen [Tylenol 650/20.3ML Oral Liq (*)] 325 mg PO Q6 PRN udcup [Last Taken Unknown] Hydrocortisone [Cortef 10 mg (*)] 5 mg PO DAILY16 #15 tab 07/07/18 [Last Taken Unknown] Hydrocortisone [Cortef 10 mg (*)] 10 mg PO DAILY #30 tab 07/07/18 [Last Taken Unknown] levOFLOXACIN [levAQUIN ORAL LIQUID] 750 mg PO DAILY AT 10AM #60 ml 07/07/18 [ Last Taken Unknown] morphINE [Roxanol 10 mg/0.5 ml oral soln (*)] 5 mg PO Q2HRS PRN #30 udsyr [Last Taken Unknown] Prison Antibiotics: Levofloxacin 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 PICC Care - Routine: N/A - Orders Services needed: Home Care, Registered Nurse, Physical Therapy Home Care Face to Face: I certify that this patient was under my care and that I had the required [id number] encounter meeting the encounter requirements on the discharge day. My findings support the fact that the patient is homebound as defined in Home Care Face to Face Continued: CMS Chapter 7 Medicare Benefits Manual 30.1.1 , The condition of the patient is such that there exists a normal inability to leave home and consequently, leaving home would require a considerable and taxing effort. Isolation Type: None Oxygen: NA Diet Texture: Regular Texture Diet, Thin Liquids, Meds Whole w/Liquids, Meds Whole in Puree Additional Instructions: -follow up with Dr Pereira team on 3-4 weeks for a recheck -call with any questions or concerns -no blood thinners Wound care: You have a wound on your bottom. To help this wound heal, stay off of your bottom as much as possible. When you do sit, adjust your position, even slightly every 15 minutes. If you are able, keep the area open to air. This type of wound is caused by [id number] contact and the moisture that builds up as a result. If, when you discharge, your wound is still open, you may continue to apply the cream used in the hospital (calazime) or another cream intended for use with diaper rash. If you continue to have issues with your wounds, you may wish to make an appointment [facility] They can be reached at: [phone] - Labs/Radiology CBC w/diff Date: 07/09/18 (/) Call or Fax Lab and Imaging Results to: Dr. Lemos - Follow Up Care Current Providers and Referrals: Patient,NotPresent [Unknown] - As per Instructions Mendez Bonilla MD [Medical Doctor] - (follow up with Dr Pereira team on 3-4 weeks for a recheck) Romulo Lemos MD [Medical Doctor] - follow up in 1 week (if needed)
--- NOTE | 2018-07-07 14:49 | ASMTLACE ---
LACE Length of stay for Answers: 2 days current admission Acuity / Level of Answers: Yes Care: Did the patient have an inpatient admission? Comorbidities - select Answers: Any tumor (including all that apply lymphoma or leukemia) Opioid dependence / Chronic pain # of Emergency department Answers: 3-4 visits in the last 6 months Score: 14 Date Signed: 07/07/2018 02:48 PM Electronically Signed By:Yuki Ludwig RN
--- NOTE | 2018-07-07 14:56 | ASMTCMCOM ---
CM Note CM Note Notes: Patient discussed with Maverick Majano and Dr. Maharaj. He is near end of life. declining palliative care at this time. She has hires Home Health Aides through [facility] and a referral has been sent to [facility] for [facility] services for PT and nursing. Therapies worked with patient in room so family could witness extent of assistance required for help with ADL's. The still wishes for his blood ork to be monitored. I will provide the number for [facility] to the should she wish to contact them for assistance with his care. [facility] aware of discharge today. Referral via allscripts. Plan: Home with [facility] and private Home Health Aides Date Signed: 07/07/2018 02:55 PM Electronically Signed By:Yuki Ludwig RN
--- NOTE | 2018-07-07 15:17 | ASDISCHSUM ---
Discharge Information Plan Status:Home with Home Health Medically Cleared to Leave:07/07/2018 Discharge Date:07/07/2018 03:00 PM D/C Disposition:Home Health Service ADT D/C Disposition:Home Health Service Projected Discharge Date:07/08/2018 11:00 AM Transportation at D/C:Family Discharge Delay Reason: Follow-Up Date:07/08/2018 11:00 AM Discharge Slot: Final Diagnosis: Placement Information Referral Type:Palliative Care Referral ID:[id number] Provider Name: Address 1: Phone Number: Address 2: Fax Number: City: Selection Factors: State: Referral Type:*Home Health Care Services Referral ID:[id number] Provider Name:[facility] Address 1:[address] [place] [address] Address 2: City:[place] Selection Factors: State:[place] Patient Contact Information Contact Name:DONNIE Relationship: Address:[address] City:[place] Alternate Phone: State/Zip Code:[place] [address] Email: Financial Information Financial Class:Medicare Primary Plan Desc:MEDICARE INPATIENT Primary Plan Number:[id number] Secondary Plan Desc:[facility] Secondary Plan Number:[id number] Assessment Information [facility] CM Progress Note CM Note CM Note Notes: Pt in FED on stroke alert. Her lives at home with his family and has been diagnosed with Metastatic prostate cancer. Pt has a number of family members in the room. Currently awaiting plan from neurosurgeon. Pt has DNR. Ongoing CM needs to be assessed. Date Signed: 07/04/2018 04:20 PM Electronically Signed By:Yazan Hinkle LCSW [facility] Length of stay for Answers: 2 days current admission Acuity / Level of Answers: Yes Care: Did the patient have an inpatient admission? Comorbidities - select Answers: Any tumor (including all that apply lymphoma or leukemia) Opioid dependence / Chronic pain # of Emergency department Answers: 3-4 visits in the last 6 months Score: 14 Date Signed: 07/07/2018 02:48 PM Electronically Signed By:Yuki Ludwig RN [facility] ARIANNE Progress Note ARIANNE Mohr CM Note Notes: Palliative Consult-met with patient and . Patient is very LIME but seemed to follow along with his 's wishes. She made it clear at the time that "they" did not want Hospice. They wanted to continue coming in for weekly infusion tx's and wanted access to hospital if needed. Patient's bedroom on the second floor. wanted PT's input as to whether or not he could go up and down stairs safely with help. PT has been ordered. She also wanted a list of private duty caregivers she could hire to help at home. A list was given to her. They have children and grandchildren in the [facility] that visit and are supportive. He was not interested at this time in renting a hospital bed and locating it in their 1st floor livingroom, "It wouldn't go with the decor." didn't seem that interested in being connected with Palliative Care either. Date Signed: 07/05/2018 02:40 PM Electronically Signed By:Liyah Toussaint LCSW [facility] CM Progress Note CM Note CM Note Notes: Spoke with patient's , Jennifer. Jennifer states they want to go with a palliative care program, [facility] as they have a family friend who works there. Jennifer initially was asking about home health services but it was then clarified she meant home care services. Jennifer has already made arrangements with [facility] who will offer support. She hopes to layer care by having different people on different days. Jennifer says they do not want hospice at this time. No further needs. CM available for needs that might arise. Date Signed: 07/06/2018 02:39 PM Electronically Signed By:Iwona Dinh LCSW [facility] Progress Note CM Note CM Note Notes: Chart reviewed. Maverick Majano is working with family to help with planning transition to home with palliative care. [facility] Per Maverick Majano, to meet with possible additional help this afternoon. CM to follow. Plan: Home with palliative and other care givers to assist. Date Signed: 07/07/2018 11:09 AM Electronically Signed By:Yuki Ludwig RN [facility] CM Progress Note CM Note CM Note Notes: Patient discussed with Maverick Majano and Dr. Maharaj. He is near end of life. declining palliative care at this time. She has hires Home Health Aides through [facility] and a referral has been sent to [facility] for [facility] services for PT and nursing. Therapies worked with patient in room so family could witness extent of assistance required for help with ADL's. The still wishes for his blood ork to be monitored. I will provide the number for [facility] to the should she wish to contact them for assistance with his care. [facility] aware of discharge today. Referral via allscripts. Plan: Home with [facility] and private Home Health Aides Date Signed: 07/07/2018 02:55 PM Electronically Signed By:Yuki Ludwig RN Intervention Information Intervention Type:*Incorrect Registration Date of Service:07/04/2018 11:46 AM Patient Type:Inpatient Staff Member:GEOFF Jacobo Courtney Hours: Discipline: Severity: Comment:
--- NOTE | 2018-07-07 17:10 | PDDCSUM ---
Discharge Summary Discharge Summary: DISCHARGE SUMMARY FOLLOW-UP ITEMS: 1. CBC to be followed up by Dr. Romulo Lemos and transfusions ordered as needed DATE OF ADMISSION: 07/04/2018 DATE OF DISCHARGE: 07/07/2018 DISCHARGE DIAGNOSES: 1. Acute hemiparesis 2. Acute subdural hematoma 3. Acute hypoglycemia 4. Metastatic prostate cancer 5. Pancytopenia secondary to malignancy and chemotherapy 6. Acute kidney injury 7. Acute hyponatremia 8. Persistent urinary tract infection present on admission 9. Primary adrenal insufficiency CONSULTATIONS: Pulmonary Critical Care, Neurosurgery, palliative care, Oncology PROCEDURES / IMAGING: Head CT demonstrating bilateral acute and subacute subdural hematomas, most notable in the right frontal parietal area with osseous metastases CHIEF COMPLAINT: Acute right-sided lizbeth paresis SUBJECTIVE: Patient is feeling well at time discharge, he is requesting to be discharged home PHYSICAL EXAM ON DISCHARGE: Systolic blood pressure is 100, heart rate 70, afebrile overnight, satting well on room air, alert awake oriented x3, left eye ptosis, motor strength is 5/5 bilateral upper and lower extremities, lungs are clear to auscultation bilaterally, abdomen is soft nontender, alert awake oriented x3, hard of hearing LABS ON DISCHARGE: White blood cell count 2300, hemoglobin 8.1, platelets 53419, potassium 3.7, serum sodium 132, creatinine 0.8, glucose level 66, positive cosyntropin stim test HOSPITAL COURSE BY PROBLEM: The patient presented with acute right-sided lizbeth paresis most likely secondary to acute hypoglycemia with possible contribution from acute and subacute subdural hematomas. The patient also has a poor performance status at baseline secondary to his metastatic prostate cancer. He received treatment for his hypoglycemia and his unilateral weakness substantially improved. He was evaluated for this issue because he has known adrenal gland infiltration from his prostate cancer, and a cosyntropin stim test indicated that he has primary adrenal insufficiency secondary to this cause. Consequently, he has been initiated on hydrocortisone 10 mg in the morning, 5 mg in the afternoon, as well as continued on his home dosage of fludrocortisone 0.1 mg daily. If he is noted to have hypertension moving forward, his fludrocortisone can be decreased to 0.1 mg 3 times weekly and then weaned off if appropriate. Regarding the patient's subdural hematomas. He was seen in consultation by Neurosurgery, and they did not recommend surgical intervention, purely supportive platelet transfusion. The patient did receive platelet transfusion for goal platelet count of greater than 50,000, and the patient and his were engaged in palliative conversations regarding his transfusion dependent state, given that there are no further chemotherapy or malignancy treatment options available. His pancytopenia is secondary to a combination of marrow tumor invasion as well as an and result of his chemotherapy. Although the patient is completely transfusion dependent, for both packed red blood cells as well as platelets, the patient is would like to continue receiving transfusions in an effort to prolong his life. Consequently, the patient cannot be transitioned to hospice support at this time, with the decision to aggressively continue transfusions. After this issue was dealt in tube very deeply by our palliative consult in [facility] and we were unable to secure an all encompassing resolution, the patient has family decided to be discharged home with home care support as well as private duty aides. The patient will continue to have his CBC checked on Tuesdays and , with the next check this Wednesday, and result to his primary oncologist Dr. Romulo Lemos. The patient potentially has a persistent urinary tract infection and he was re- initiated on levofloxacin for 4 subsequent days, for total of 7 days of antibiotic treatment. He was also noted that the patient had significant gagging when he attempted to swallow his oral medications, and we have attempted to modify all the medications to liquid which currently have a liquid formulary. This includes his scheduled Tylenol, as needed opiate, antibiotic, and stool softener. His glucocorticoid and mineral corticoid agents will need to remain in pill form as well as his Cymbalta. DISCHARGE MEDICATIONS: Please see official discharge medication reconciliation sheet in chart , Roxanol as needed, liquid Tylenol 1000 mg scheduled twice daily, levofloxacin 750 mg daily x2 subsequent days, scheduled Senokot, added hydrocortisone 10 mg in the morning, 5 mg in the afternoon. DISCHARGE INSTRUCTIONS: Please schedule follow-up with her outpatient oncologist and consider reassessing palliative care if your condition worsens. TIME SPENT: Greater than 30 minutes were spent on direct patient care, as well as discharge planning and preparation.
[2018-07-07] MEDS ORDERED: SENNOSIDES 17.6 MG/10 ML UDL PO SCH (21:00)
== END 2018-07-07 15:00 | disposition home health service (06) | DRG 64 ==
LOC: EDUNIT# → F2N 16:38 → OBSVTOIN 17:34
PROVIDERS: ADMIT Neurological Surgery; ATTEND Neurological Surgery
PROC: 30233R1 Transfusion of Nonautologous Platelets into Peripheral Vein, Percutaneous Approach (ICD-10-PCS; principal; 2018-07-05)
DX: I62.01 Nontraumatic acute subdural hemorrhage (principal); I62.02 Nontraumatic subacute subdural hemorrhage; E16.2 Hypoglycemia, unspecified; D61.810 Antineoplastic chemotherapy induced pancytopenia; C79.51 Secondary malignant neoplasm of bone; C79.70 Secondary malignant neoplasm of unspecified adrenal gland; G81.91 Hemiplegia, unspecified affecting right dominant side; C79.89 Secondary malignant neoplasm of other specified sites; C78.7 Secondary malignant neoplasm of liver and intrahepatic bile duct; D69.6 Thrombocytopenia, unspecified; N17.9 Acute kidney failure, unspecified; E87.1 Hypo-osmolality and hyponatremia; N39.0 Urinary tract infection, site not specified; G89.3 Neoplasm related pain (acute) (chronic); F11.20 Opioid dependence, uncomplicated; Z92.3 Personal history of irradiation; Z66 Do not resuscitate; Z85.46 Personal history of malignant neoplasm of prostate
CPT/HCPCS: 82435-PO; 82565-PO; 82947-PO; 84132-PO; 84295-PO; 84484-PO; 84520-PO; 85014-PO; 92526-GN; 92610-GN; 96374; 97116-GP; 97162-GP; 97166-GO; 97530-GO; 97535-GO; 99001-90; G8978-GP-CM; G8979-GP-CK; G8987-GO-CK; G8988-GO-CK; G8996-GN-CI; G8997-GN-CI; J0834; J1170; J1200; J2175; P9016; P9034; P9035; P9037